=== PATIENT | female | born 1980 | race American Indian/Alaskan Native ===

== ENCOUNTER 2019-03-03 08:40 | Emergency (ER) | payer BC, MEDICAID ==
[2019-03-03 09:06] VITALS: BP 144/96
--- NOTE | 2019-03-03 10:46 | Emergency Department Report ---
ED Lower Extremity HPI - General Chief Complaint: Extremity Injury, Lower Stated Complaint: LEFT HIP PAIN Time Seen by Provider: 03/03/19 10:36 Source: patient Mode of arrival: Ambulatory Limitations: No Limitations - History of Present Illness Initial Comments: Mrs. Harris is a 38-year-old female who presents with the pain for the last week. Pain is worse with position change. Ibuprofen improves the pain. Pain is moderately severe in severity. She had a fall 2 weeks ago. She did strain her right hamstring. She did not have immediate hip pain. Denies direct trauma. Pain is central to the left groin. MD Complaint: hip injury -: Gradual, week(s) (1) Injury: Hip: Left Type of Injury: other (fall strain) Severity: moderate Improves With: NSAID Worsens With: weight bearing, movement Context: fall - Related Data Previous Rx's Medication Instructions Recorded Last Taken Type Ibuprofen [Motrin 800 MG tab] 800 mg PO Q8H PRN #90 tablet 07/21/14 Unknown Rx oxyCODONE /ACETAMINOPHEN [Percocet 1 tab PO Q6HR PRN #30 tablet 07/21/14 Unknown Rx 5/325 mg] Amoxicillin/K Clav Tab [Augmentin 1 tab PO Q12HR #20 tab 05/04/15 Unknown Rx 875 mg] Gentamicin 0.3% Ophth Soln 2 drops OS QID #5 ml 05/04/15 Unknown Rx predniSONE [Deltasone] 20 mg PO TID #15 tab 05/04/15 Unknown Rx Allergies Allergy/AdvReac Type Severity Reaction Status Date / Time No Known Allergies Allergy Verified 07/21/14 07:50 ED Review of Systems ROS: Stated complaint: LEFT HIP PAIN Other details as noted in HPI Constitutional: denies: fever, malaise Musculoskeletal: arthralgia Skin: denies: rash, lesions ED Past Medical Hx - Past Medical History Previous Medical History?: Yes Hx Hypertension: No Hx Congestive Heart Failure: No Hx Diabetes: No Hx Deep Vein Thrombosis: No Hx Renal Disease: No Hx Sickle Cell Disease: No Hx Seizures: No Hx Asthma: No Hx COPD: No Hx HIV: No Additional medical history: Obesity - Surgical History Additional Surgical History: X2 - Social History Smoking Status: Never Smoker Substance Use Type: Alcohol - Medications Home Medications: Home Medications Medication Instructions Recorded Confirmed Last Taken Type Ibuprofen [Motrin 800 MG tab] 800 mg PO Q8H PRN #90 tablet 07/21/14 Unknown Rx oxyCODONE /ACETAMINOPHEN [Percocet 1 tab PO Q6HR PRN #30 tablet 07/21/14 Unknown Rx 5/325 mg] Amoxicillin/K Clav Tab [Augmentin 1 tab PO Q12HR #20 tab 05/04/15 Unknown Rx 875 mg] Gentamicin 0.3% Ophth Soln 2 drops OS QID #5 ml 05/04/15 Unknown Rx predniSONE [Deltasone] 20 mg PO TID #15 tab 05/04/15 Unknown Rx ED Physical Exam - General Limitations: No Limitations General appearance: alert, in no apparent distress - Head Head exam: Present: atraumatic, normocephalic - Respiratory Respiratory exam: Absent: respiratory distress - Extremities Exam Extremities exam: Present: normal inspection, full ROM, other (steady normal gait able to change position without difficulty). Absent: tenderness - Expanded Lower Extremity Exam Left Hip exam: Present: normal inspection, full ROM. Absent: tenderness, swelling, abrasion, deformity Upper Leg exam: Present: normal inspection, full ROM. Absent: tenderness, swe lling Knee exam: Present: normal inspection, full ROM Lower Leg exam: Present: normal inspection, full ROM Ankle exam: Present: normal inspection, full ROM Foot/Toe exam: Present: normal inspection, full ROM ED Course Vital Signs 03/03/19 09:05 Temperature 98.1 F Pulse Rate 79 Respiratory 16 Rate Blood Pressure 144/96 O2 Sat by Pulse 97 Oximetry ED Lower Extremity MDM - Radiology Data Radiology results: report reviewed Left hip radiograph: No acute process, no DJD according to radiology report - Medical Decision Making Left hip strain due to fall: Recommended continued use of ibuprofen. Referred to orthopedic surgeon. Normal radiographs according to radiology report Critical care attestation.: If time is entered above; I have spent that time in minutes in the direct care of this critically ill patient, excluding procedure time. ED Disposition Clinical Impression: Strain of left hip Disposition: - TO HOME OR SELFCARE Is pt being admited?: No Does the pt Need Aspirin: No Condition: Stable Instructions: Muscle Strain (ED) Referrals: FELICITAS BYRNES MD [Staff Physician] - 3-5 Days Forms: Work/School Release Form(ED)
--- NOTE | 2019-03-03 11:33 | XRay Report ---
Left hip, 2 views INDICATION: left hip pain. COMPARISON: None. IMPRESSION: No acute osseous or soft tissue abnormality. No significant DJD. Signer Name: Geraldo Maurer Jr, MD Signed: 03/03/2019 11:29 AM Workstation Name: [id number]
== END 2019-03-03 11:45 | disposition home or self-care (01) ==
LOC: ED 08:40
DX: S76.012A Strain of muscle, fascia and tendon of left hip, initial encounter (principal); E66.9 Obesity, unspecified; Z79.899 Other long term (current) drug therapy; W19.XXXA Unspecified fall, initial encounter; Y93.89 Activity, other specified; Y92.89 Other specified places as the place of occurrence of the external cause; Y99.8 Other external cause status

== ENCOUNTER 2020-01-12 11:56 | Inpatient (IN) | payer OTHER, SELFPAY ==
[2020-01-12] MEDS ORDERED: SODIUM CHLORIDE 0.9% 1000 ML IV SOLN IV ONE (13:14)
--- NOTE | 2020-01-12 13:18 | Emergency Department Report ---
ED General Adult HPI - General Chief complaint: Dyspnea/Respdistress Stated complaint: SOB Time Seen by Provider: 01/12/20 12:50 Source: patient Mode of arrival: Ambulatory Limitations: No Limitations - History of Present Illness Initial comments: Patient is 39 years old female with no significant past medical history. Patient presented to the ER complaining of shortness of breath and fever. Patient stated the symptoms started 3 days ago with a temperature of 103 and headache. Patient stated that she has been taking ibuprofen and Tylenol. She stated that headache is gone but now she started having more shortness of breath. Patient found to have a oxygen saturation of 73% on room air in triage improved to 95% on 4 L of oxygen. Patient also complaining of nausea and diarrhea. Severity scale (0 -10): 5 - Related Data Previous Rx's Medication Instructions Recorded Last Taken Type Ibuprofen [Motrin 800 MG tab] 800 mg PO Q8H PRN #90 tablet 07/21/14 Unknown Rx oxyCODONE /ACETAMINOPHEN [Percocet 1 tab PO Q6HR PRN #30 tablet 07/21/14 Unknown Rx 5/325 mg] Amoxicillin/K Clav Tab [Augmentin 1 tab PO Q12HR #20 tab 05/04/15 Unknown Rx 875 mg] Gentamicin 0.3% Ophth Soln 2 drops OS QID #5 ml 05/04/15 Unknown Rx predniSONE [Deltasone] 20 mg PO TID #15 tab 05/04/15 Unknown Rx Allergies Allergy/AdvReac Type Severity Reaction Status Date / Time No Known Allergies Allergy Verified 07/21/14 07:50 ED Review of Systems ROS: Stated complaint: SOB Other details as noted in HPI Comment: All other systems reviewed and negative Constitutional: chills, fever Respiratory: cough, shortness of breath Cardiovascular: denies: chest pain, palpitations Gastrointestinal: nausea. denies: abdominal pain, vomiting ED Past Medical Hx - Past Medical History Previous Medical History?: No Hx Hypertension: No Hx Congestive Heart Failure: No Hx Diabetes: No Hx Deep Vein Thrombosis: No Hx Renal Disease: No Hx Sickle Cell Disease: No Hx Seizures: No Hx Asthma: No Hx COPD: No Hx HIV: No Additional medical history: Obesity - Surgical History Past Surgical History?: Yes Additional Surgical History: X2 - Social History Smoking Status: Never Smoker Substance Use Type: None - Medications Home Medications: Home Medications Medication Instructions Recorded Confirmed Last Taken Type Ibuprofen [Motrin 800 MG tab] 800 mg PO Q8H PRN #90 tablet 07/21/14 Unknown Rx oxyCODONE /ACETAMINOPHEN [Percocet 1 tab PO Q6HR PRN #30 tablet 07/21/14 Unknown Rx 5/325 mg] Amoxicillin/K Clav Tab [Augmentin 1 tab PO Q12HR #20 tab 05/04/15 Unknown Rx 875 mg] Gentamicin 0.3% Ophth Soln 2 drops OS QID #5 ml 05/04/15 Unknown Rx predniSONE [Deltasone] 20 mg PO TID #15 tab 05/04/15 Unknown Rx ED Physical Exam - General Limitations: No Limitations General appearance: alert, in no apparent distress - Head Head exam: Present: atraumatic, normocephalic, normal inspection - Eye Eye exam: Present: normal appearance - ENT ENT exam: Present: mucous membranes dry - Neck Neck exam: Present: normal inspection, full ROM. Absent: tenderness, meningismus - Respiratory Respiratory exam: Present: normal lung sounds bilaterally - Cardiovascular Cardiovascular Exam: Present: regular rate, normal rhythm, normal heart sounds - GI/Abdominal GI/Abdominal exam: Present: soft, normal bowel sounds. Absent: distended, tenderness, guarding, rebound, rigid, organomegaly, mass, bruit, pulsatile mass, hernia - Extremities Exam Extremities exam: Present: normal inspection, full ROM, normal capillary refill. Absent: tenderness, pedal edema, calf tenderness - Back Exam Back exam: Present: normal inspection, full ROM. Absent: CVA tenderness (R), CVA tenderness (L) - Neurological Exam Neurological exam: Present: alert, oriented X3, CN II-XII intact, normal gait, reflexes normal - Psychiatric Psychiatric exam: Present: normal mood - Skin Skin exam: Present: warm, intact, normal color ED Course Vital Signs 01/12/20 01/12/20 01/12/20 12:42 12:45 12:47 Temperature 99.7 F H Pulse Rate 93 H 96 H Respiratory 18 Rate Blood Pressure 98/56 98/56 Blood Pressure 98/56 [Right] O2 Sat by Pulse 95 94 91 Oximetry 01/12/20 01/12/20 01/12/20 13:00 13:15 13:30 Temperature Pulse Rate 85 85 83 Respiratory Rate Blood Pressure 98/56 98/57 98/57 Blood Pressure [Right] O2 Sat by Pulse 96 94 92 Oximetry 01/12/20 01/12/20 01/12/20 13:58 14:00 14:16 Temperature Pulse Rate 101 H 93 H Respiratory 9 L 27 H Rate Blood Pressure 98/57 98/57 98/57 Blood Pressure [Right] O2 Sat by Pulse 97 Oximetry 01/12/20 01/12/20 01/12/20 14:30 14:46 15:00 Temperature Pulse Rate 82 83 Respiratory 51 H 28 H Rate Blood Pressure 98/57 98/57 98/57 Blood Pressure [Right] O2 Sat by Pulse 97 98 95 Oximetry 01/12/20 01/12/20 01/12/20 15:16 15:30 15:46 Temperature Pulse Rate 80 79 79 Respiratory 21 25 H 16 Rate Blood Pressure 98/57 98/57 105/57 Blood Pressure [Right] O2 Sat by Pulse 96 97 95 Oximetry 01/12/20 01/12/20 01/12/20 16:00 16:16 16:30 Temperature Pulse Rate 82 81 80 Respiratory 38 H 24 20 Rate Blood Pressure 105/57 105/57 105/57 Blood Pressure [Right] O2 Sat by Pulse 97 95 95 Oximetry 01/12/20 01/12/20 01/12/20 16:46 17:00 17:16 Temperature Pulse Rate 82 81 83 Respiratory 23 18 17 Rate Blood Pressure 117/77 117/77 117/77 Blood Pressure [Right] O2 Sat by Pulse 95 92 85 Oximetry 01/12/20 01/12/20 01/12/20 17:30 17:46 18:00 Temperature Pulse Rate 83 79 98 H Respiratory 34 H 24 19 Rate Blood Pressure 117/77 114/65 114/65 Blood Pressure [Right] O2 Sat by Pulse 92 93 93 Oximetry 01/12/20 01/12/20 01/12/20 18:10 18:20 18:30 Temperature Pulse Rate 85 86 87 Respiratory 26 H 26 H 33 H Rate Blood Pressure 114/65 114/65 114/65 Blood Pressure [Right] O2 Sat by Pulse 91 91 87 Oximetry 01/12/20 01/12/20 01/12/20 18:40 18:50 19:00 Temperature Pulse Rate 86 Respiratory 53 H Rate Blood Pressure 114/65 116/74 116/74 Blood Pressure [Right] O2 Sat by Pulse 91 88 92 Oximetry 01/12/20 01/12/20 01/12/20 19:10 19:20 19:30 Temperature Pulse Rate Respiratory Rate Blood Pressure 116/74 116/74 116/74 Blood Pressure [Right] O2 Sat by Pulse 93 92 92 Oximetry 01/12/20 01/12/20 01/12/20 19:40 19:50 20:00 Temperature Pulse Rate Respiratory Rate Blood Pressure 116/74 116/66 116/66 Blood Pressure [Right] O2 Sat by Pulse 94 93 93 Oximetry 01/12/20 20:23 Temperature 99.9 F H Pulse Rate 90 Respiratory 20 Rate Blood Pressure 116/70 Blood Pressure [Right] O2 Sat by Pulse 88 Oximetry ED Medical Decision Making - Lab Data Result diagrams: 01/13/20 05:03 01/13/20 05:03 - Radiology Data Radiology results: report reviewed - Medical Decision Making Patient is 39 years old female with no significant past medical history. Patient presented to the ER complaining of shortness of breath and fever. Patient stated the symptoms started 3 days ago with a temperature of 103 and headache. Patient stated that she has been taking ibuprofen and Tylenol. She stated that headache is gone but now she started having more shortness of breath. Patient found to have a oxygen saturation of 73% on room air in triage improved to 95% on 4 L of oxygen. Patient also complaining of nausea and diarrhea. Patient stated that her shortness of breath is much better when she started on oxygen. Chest x-ray showed pneumonia. COVID-19 lab order. Patient treated with Rocephin and Zithromax. Patient received normal saline 30 mL/kg. I discussed the patient with Dr. Haley, he agreed to admit the patient to medical service for further management. Critical Care Time: Yes Critical care time in (mins) excluding proc time.: 30 Critical care attestation.: If time is entered above; I have spent that time in minutes in the direct care of this critically ill patient, excluding procedure time. ED Disposition Clinical Impression: Sepsis, Suspected COVID-19 virus infection Acute respiratory failure Qualifiers: Respiratory failure complication: hypoxia Qualified Code(s): J96.01 - Acute respiratory failure with hypoxia Disposition: OP ADMIT IP TO THIS HOSP Is pt being admited?: Yes Condition: Stable
--- NOTE | 2020-01-12 13:44 | XRay Report ---
CHEST 1 VIEW 1314 INDICATION / CLINICAL INFORMATION: Fever and shortness of breath. COMPARISON: None available. FINDINGS: SUPPORT DEVICES: None HEART / MEDIASTINUM: Upper limits of normal on this projection LUNGS / PLEURA: Mildly congested appearance is seen for the semiupright view. No areas of consolidati on are seen. Slight patchy density is seen in the right upper lobe which could be artifactual but I w ould have difficulty excluding mild patchy interstitial infiltrate. No pneumothorax. ADDITIONAL FINDINGS: No significant additional findings. IMPRESSION: Mild congestion. Question of mild patchy infiltrate in the right upper lobe. Recommend cl inical correlation. Signer Name: John Montero MD Signed: 01/12/2020 1:40 PM Workstation Name: [id number]
[2020-01-12 14:22] LABS: Basophils % (Auto) 0.6 % (0.0-1.8); Hematocrit 36.4 % (30.3-42.9); Hemoglobin 12.2 gm/dl (10.1-14.3); Lymphocytes # (Auto) 1.3 K/mm3 (1.2-5.4); Lymphocytes % (Auto) 27.1 % (13.4-35.0); Mean Corpuscular HGB Conc 33 % (30-34); Mean Corpuscular Volume 79 fl (79-97); Monocytes # (Auto) 0.4 K/mm3 (0.0-0.8); Monocytes % (Auto) 8.6 % (0.0-7.3); Platelet Count 172 K/mm3 (140-440); Red Blood Count 4.63 M/mm3 (3.65-5.03); Red Cell Distribution Width 17.2 % (13.2-15.2)
[2020-01-12] MEDS ORDERED: AZITHROMYCIN 500 MG in SODIUM CHLORIDE 0.9% 250ML 250 ML IV ONE (14:28)
[2020-01-12] MEDS ORDERED: cefTRIAXone/NS 1 GM/50 ML 1 GM/50 ML BAG IV ONE (14:28)
[2020-01-12 14:31] LABS: Bacteria,Urine 1+ /HPF (Negative); Bilirubin,Urine NEG (Negative); Blood,Urine NEG (Negative); Color,Urine Amber (Yellow); Mucus,Urine 1+ /HPF
--- NOTE | 2020-01-12 14:45 | History and Physical Report ---
History of Present Illness Chief complaint: Is hard for me to breathe, and I am coughing History of present illness: 39 YO Female with Obesity Hypoventilation Syndrome, Super Morbid Obesity presents to ED for evaluation. Patient states that she had experienced fever to 104 F, dry cough, and shortness of breath over the past 3 days with progressively worsening symptoms over the same time frame. Patient also reports malaise, fatigue, and generalized weakness. Patient transported to [facility] via private vehicle for further care and evaluation of the aforementioned symptoms. Patient seen and evaluated in the emergency department. Lab and imaging studies reviewed. Patient found to have a pulse oximetry of 73% on room air which is consistent with acute hypoxemic respiratory failure. Patient immediately placed on supplemental oxygen for acute hypoxemic respiratory failure. Chest x-ray revealed RUL pneumonia. Patient admitted to medical floor for further care. Patient initiated on pneumonia protocol as well as coronavirus 19 protocol. Infectious disease service consulted in ED. Patient denies chills, chest pain, palpitation, skin rash, nausea, vomiting, abdominal pain, diarrhea, known ill contacts, or known exposure to COVID-19. No prior admission for review. All medication listed at time of admission has been reconciled. Past History Past Medical History: other (See HPI) Past Surgical History: Social history: . denies: smoking, alcohol abuse, prescription drug abuse Family history: hypertension Medications and Allergies Allergies Allergy/AdvReac Type Severity Reaction Status Date / Time No Known Allergies Allergy Verified 07/21/14 07:50 Home Medications Medication Instructions Recorded Confirmed Last Taken Type Ibuprofen [Motrin 800 MG tab] 800 mg PO Q8H PRN #90 tablet 07/21/14 Unknown Rx oxyCODONE /ACETAMINOPHEN [Percocet 1 tab PO Q6HR PRN #30 tablet 07/21/14 Unknown Rx 5/325 mg] Amoxicillin/K Clav Tab [Augmentin 1 tab PO Q12HR #20 tab 05/04/15 Unknown Rx 875 mg] Gentamicin 0.3% Ophth Soln 2 drops OS QID #5 ml 05/04/15 Unknown Rx predniSONE [Deltasone] 20 mg PO TID #15 tab 05/04/15 Unknown Rx Active Meds: Active Medications Azithromycin 500 mg/ Sodium (Chloride) 250 mls @ 250 mls/hr IV ONCE ONE; P rotocol Stop: 01/12/20 15:27 Ceftriaxone Sodium (Rocephin/Ns 1 Gm/50 Ml) 1 gm in 50 mls @ 100 mls/hr IV ONCE ONE; Protocol Stop: 01/12/20 14:57 Review of Systems Constitutional: fever, fatigue, weakness, malaise, lethargy Ears, nose, mouth and throat: ear pain, ear discharge, tinnitis, decreased hearing, nose pain Cardiovascular: shortness of breath, no chest pain, no orthopnea, no palpitations Respiratory: cough, cough with sputum, shortness of breath, no wheezing, no pleurisy Gastrointestinal: no abdominal pain, no nausea, no vomiting, no diarrhea, no constipation Genitourinary Female: no pelvic pain, no flank pain, no menorrhagia Rectal: no pain, no incontinence, no bleeding Musculoskeletal: no neck stiffness, no neck pain, no shooting arm pain, no arm numbness/tingling Integumentary: no rash, no pruritis, no redness, no sores, no wounds Neurological: no transient paralysis, no paralysis, no weakness, no parathesias, no numbness, no tingling, no seizures Psychiatric: no anxiety, no memory loss, no change in sleep habits, no sleep disturbances, no insomnia, no hypersomnia, no change in appetite Endocrine: no cold intolerance, no heat intolerance, no polyphagia, no excessive thirst, no polydipsia, no polyuria Hematologic/Lymphatic: no easy bruising, no easy bleeding, no lymphadenopathy, no lymphedema Allergic/Immunologic: no urticaria, no wheezing, no persistent infections, no anaphylaxis Exam - Constitutional Vitals: Temp Pulse Resp BP Pulse Ox 99.7 F H 96 H 18 98/56 91 01/12/20 12:47 01/12/20 12:47 01/12/20 12:47 01/12/20 12:47 01/12/20 12:47 General appearance: Present: mild distress, obese - EENT Eyes: Present: PERRL ENT: hearing intact, clear oral mucosa - Neck Neck: Present: supple, normal ROM - Respiratory Respiratory effort: labored, accessory muscle use, stridor Respiratory: bilateral: diminished, rhonchi - Cardiovascular Heart Sounds: Present: S1 & S2. Absent: rub, click - Extremities Extremities: pulses symmetrical, No edema Peripheral Pulses: within normal limits - Abdominal General gastrointestinal: Present: soft, non-tender, non-distended, normal bowel sounds Female genitourinary: Present: normal - Integumentary Integumentary: Present: clear, warm, dry - Musculoskeletal Musculoskeletal: generalized weakness - Psychiatric Psychiatric: appropriate mood/affect, intact judgment & insight - Neurologic Neurologic: CNII-XII intact, moves all extremities Results - Labs CBC & Chem 7: 01/12/20 14:00 01/12/20 14:00 Labs: Abnormal lab results 01/12/20 01/12/20 Range/Units 14:00 14:00 MCH 26 L (28-32) pg RDW 17.2 H (13.2-15.2) % [place] % (Auto) 8.6 H (0.0-7.3) % D-Dimer 777.87 H (0-234) ng/mlDDU Assessment and Plan - Patient Problems (1) Acute respiratory failure Current Visit: Yes Status: Acute Qualifiers: Respiratory failure complication: hypoxia Qualified Code(s): J96.01 - Acute respiratory failure with hypoxia Plan to address problem: Chest x-ray, supplemental oxygen, nebulizer therapy, noninvasive positive pressure ventilation as clinically indicated, incentive spirometry, pulmonary toilet, ambulate in hallway 3 times daily as needed, treat pneumonia. (2) Pneumonia Current Visit: Yes Status: Acute Qualifiers: Laterality: right Lung location: upper lobe of lung Plan to address problem: Pneumonia protocol: Chest x-ray, CBC, CMP, IV antibiotic therapy, blood culture, pulse oximetry, nebulizer therapy, pulmonary toilet. (3) Suspected COVID-19 virus infection Current Visit: Yes Status: Acute Plan to address problem: Coronavirus protocol: Infectious disease service consulted in ED, COVID-19 PCR sent in emergency department, prone ventilation while in bed, supportive care. (4) Obesity hypoventilation syndrome Current Visit: Yes Status: Acute Plan to address problem: Supplemental oxygen, nebulizer therapy, incentive spirometry, early ambulation, out of bed to chair 3 times daily and PRN. Balanced diet, increase physical activity at discharge. Outpatient bariatric surgery consult. Outpatient pulmonology evaluation for sleep study. (5) DVT prophylaxis Current Visit: Yes Status: Acute Plan to address problem: SCD to bilateral lower extremities while in bed, prophylactic heparin.
[2020-01-12 14:49] LABS: BUN/Creatinine Ratio 13; Blood Urea Nitrogen 12 mg/dL (7-17)
[2020-01-12 14:50] LABS: Alanine Aminotransferase 31 units/L (7-56); Albumin 3.7 g/dL (3.9-5); Bilirubin,Direct 0.2 mg/dL (0-0.2); Calcium 8.5 mg/dL (8.4-10.2)
[2020-01-12] MEDS ORDERED: oxyCODONE /ACETAMINOPHEN 5-325MG TAB PO PRN (14:59)
[2020-01-12] MEDS ORDERED: ACETAMINOPHEN 325 MG TAB PO PRN (15:00)
[2020-01-12] MEDS ORDERED: ONDANSETRON 4 MG/2 ML INJ IV PRN (15:00)
[2020-01-12] MEDS: GENTAMICIN 0.3% OPHTH SOLN 5 ML OS SCH (18:00)
[2020-01-13] MEDS: HEPARIN 5,000 UNIT/1 ML VIAL SUB-Q SCH ×3 (00:06→22:51)
[2020-01-13] MEDS: GENTAMICIN 0.3% OPHTH SOLN 5 ML OS SCH ×5 (00:07→22:54)
[2020-01-13 05:16] LABS: Basophils % (Auto) 0.3 % (0.0-1.8); Eosinophils % (Auto) 0.1 % (0.0-4.3); Hematocrit 36.6 % (30.3-42.9); Hemoglobin 11.6 gm/dl (10.1-14.3); Lymphocytes # (Auto) 1.2 K/mm3 (1.2-5.4); Lymphocytes % (Auto) 22.3 % (13.4-35.0); Mean Corpuscular HGB Conc 32 % (30-34); Mean Corpuscular Volume 79 fl (79-97); Monocytes # (Auto) 0.4 K/mm3 (0.0-0.8); Monocytes % (Auto) 8.1 % (0.0-7.3); Platelet Count 174 K/mm3 (140-440); Red Blood Count 4.63 M/mm3 (3.65-5.03); Red Cell Distribution Width 16.9 % (13.2-15.2)
[2020-01-13 06:06] LABS: BUN/Creatinine Ratio 11; Blood Urea Nitrogen 10 mg/dL (7-17); Calcium 7.9 mg/dL (8.4-10.2); Hemolysis Index 0
[2020-01-13] MEDS: cefTRIAXone/NS 2 GM/100 ML 2 GM/100 ML BAG IV SCH (11:24)
[2020-01-13] MEDS: AZITHROMYCIN 250 MG TAB PO SCH (11:25)
--- NOTE | 2020-01-13 21:30 | Progress Note ---
Assessment and Plan / Acute hypoxic respiratory failure Patient on high flow FiO2 Due to COVID-19 pneumonia Continue nebs, Solu-Medrol and wean off O2 as tolerated Consulted pulmonary / Severe sepsis Due to COVID-19 Continue IV steroid and follow inflammatory markers / COVID-19 virus PNA Coronavirus protocol: Infectious disease service consulted in ED, prone ventilation while in bed, follow inflammatory markers Continue IV Solu-Medrol for now, wait for ID recommendation supportive care. / Obesity hypoventilation syndrome Supplemental oxygen, nebulizer therapy, incentive spirometry, CPAP at bedtime Outpatient pulmonology evaluation for sleep study. /Morbid obesity, dietary and exercise remote recommendation when clinically stable / DVT prophylaxis SCD to bilateral lower extremities while in bed, prophylactic heparin. 01/12: Positive for COVID 19, patient on high flow 75% Fio2. follow ID recommendation. cont on iv steroid, follow inflammatory markers Subjective Date of service: 01/13/20 Interval history: Patient seen and examined. Medical records and medication list reviewed. No acute event overnight noted by the RN. Patient complains of difficulty breathing even on resting. Patient is tolerating diet. Patient high flow O2 Discussed plan of care at bedside with patient. Objective - Exam Narrative Exam: GENERAL: well-developed and morbidly obese -[place] female lying on bed appeared to be in no discomfort. HEENT: Normocephalic. Atraumatic. No conjunctival congestion or icterus. Patient has moist mucous membranes. NECK: Supple. Trachea midline. CHEST/LUNGS: Diminished breath sound auscultated bilaterally, breathing nonlabored. HEART/CARDIOVASCULAR: Regular in rate and rhythm. S1 and S2 positive. ABDOMEN: Abdomen is soft, nontender. Patient has normal bowel sounds. SKIN: There is no rash. Warm and dry. NEURO: No focal motor deficit. Follows command. MUSCULOSKELETAL: No joint effusion or tenderness. EXTRIMITY: No edema, no cyanosis or clubbing. PSYCH: Cooperative. - Constitutional Vitals: Vital Signs - 12hr 01/13/20 01/13/20 01/13/20 10:00 11:52 13:45 Temperature 100.5 F H Pulse Rate 86 Respiratory 20 Rate Blood Pressure 101/60 O2 Sat by Pulse 93 90 95 Oximetry 01/13/20 01/13/20 01/13/20 16:32 17:53 20:55 Temperature 103.0 F H Pulse Rate 86 Respiratory 20 Rate Blood Pressure 93/56 O2 Sat by Pulse 86 92 93 Oximetry - Labs CBC & Chem 7: 01/19/20 04:56 01/19/20 04:56 Labs: Abnormal lab results 01/12/20 01/13/20 01/13/20 Range/Units Unknown 05:03 05:03 MCH 25 L (28-32) pg RDW 16.9 H (13.2-15.2) % [place] % (Auto) 8.1 H (0.0-7.3) % Chloride 97.7 L (98-107) mmol/L Glucose 112 H (65-100) mg/dL Calcium 7.9 L (8.4-10.2) mg/dL Coronavirus (PCR) Positive A (Negative)
[2020-01-13] MEDS ORDERED: methylPREDNISolone Sod Succinate 125 MG/2 ML INJ IV SCH (22:00)
[2020-01-13] MEDS: methylPREDNISolone Sod Succinate 40 MG/1 ML INJ IV SCH (22:51)
[2020-01-14 01:01] LABS: C-Reactive Protein 13.8 mg/dL (0.00-1.30)
[2020-01-14] MEDS: methylPREDNISolone Sod Succinate 125 MG/2 ML INJ IV SCH ×2 (06:42→13:20)
[2020-01-14] MEDS: methylPREDNISolone Sod Succinate 40 MG/1 ML INJ IV SCH (07:23)
[2020-01-14] MEDS: HEPARIN 5,000 UNIT/1 ML VIAL SUB-Q SCH (09:32)
[2020-01-14] MEDS: AZITHROMYCIN 250 MG TAB PO SCH (09:33)
[2020-01-14] MEDS: cefTRIAXone/NS 2 GM/100 ML 2 GM/100 ML BAG IV SCH (09:33)
[2020-01-14] MEDS: REMDESIVIR 100 MG in SODIUM CHLORIDE 0.9% 250ML 250 ML IV SCH (11:21)
[2020-01-14] MEDS: GENTAMICIN 0.3% OPHTH SOLN 5 ML OS SCH ×4 (11:26→22:25)
[2020-01-14] MEDS ORDERED: SODIUM CHLORIDE 0.9% 50 ML IV SCH (13:00)
[2020-01-14] MEDS ORDERED: REMDESIVIR 100 MG in SODIUM CHLORIDE 0.9% 250ML 250 ML IV ONE (13:00)
[2020-01-14] MEDS ORDERED: methylPREDNISolone Sod Succinate 125 MG/2 ML INJ IV SCH (14:00)
--- NOTE | 2020-01-14 16:05 | Consultation ---
History of Present Illness - Reason for Consult Consult date: 01/14/20 COVID Requesting physician: KENDELL PIERCE - History of Present Illness 39 years old female with history of super obesity, obstructive sleep apnea, admitted on 01/13/2020 due to 10-day history of runny nose, body aches, generalized malaise, dry cough, progressive shortness of breath. Review of Systems: positive in bold print General: fever, chills, malaise Cutaneous: rash, pruritus Head: headaches or injury Eyes: changes in vision, eye pain, double vision Ears: ear pain, ear discharge, ringing or hearing loss Nose: nose bleeding, stuffiness Mouth & throat: bleeding gums, horseness, no dental problems, or swollen glands Neck: no pain, node enlargement/lumps, tyroid enlargement or tenderness Respiratory: SOB, cough, PHILIP, wheezing, sputum, hemoptysis, pleuritic chest pain Cardiovascular: chest pain, leg edema, cyanosis, PHILIP, orthopnea Musculoskeletal: edema, deformities, pain Gastrointestinal: nausea, vomiting, hematemesis, diarrhea, constipation, melena, bright red blood in stools, fecal incontinence, jaundice Genitourinary/Reproductive: frequent urination, dysuria, hematuria, incontinence Neurogical: seizures, headaches, weakness, paresthesias, loss of speech or vision; memory loss, vertigo, tremors, numbness Psychiatric: stable mood; excessive anxiety, sadness or moodiness Past History Past Medical History: other (See HPI) Past Surgical History: Social history: . denies: smoking, alcohol abuse, prescription drug abuse Family history: hypertension Medications and Allergies Allergies Allergy/AdvReac Type Severity Reaction Status Date / Time No Known Allergies Allergy Verified 07/21/14 07:50 Home Medications Medication Instructions Recorded Confirmed Last Taken Type Ibuprofen [Motrin 800 MG tab] 800 mg PO Q8H PRN #90 tablet 07/21/14 01/14/20 06:52 Rx oxyCODONE /ACETAMINOPHEN [Percocet 1 tab PO Q6HR PRN #30 tablet 07/21/14 01/14/20 12/20/19 Rx 5/325 mg] Amoxicillin/K Clav Tab [Augmentin 1 tab PO Q12HR #20 tab 05/04/15 01/14/20 01/14/20 06:53 Rx 875 mg] Gentamicin 0.3% Ophth Soln 2 drops OS QID #5 ml 05/04/15 01/14/20 12/20/19 Rx predniSONE [Deltasone] 20 mg PO TID #15 tab 05/04/15 01/14/20 01/14/20 06:51 Rx Active Meds: Active Medications Acetaminophen (Tylenol) 650 mg PO Q4H PRN PRN Reason: Pain MILD(1-3)/Fever >100.5/CASTANO Last Admin: 01/13/20 00:22 Dose: 650 mg Documented by: Azithromycin (Zithromax) 500 mg PO QDAY [facility] Last Admin: 01/14/20 09:33 Dose: 500 mg Documented by: Gentamicin Sulfate (Gentamicin 0.3% Ophth Soln) 2 drops OS QID [facility] Last Admin: 01/14/20 13:28 Dose: 2 drops Documented by: Heparin Sodium (Porcine) (Heparin) 5,000 unit SUB-Q Q12HR [facility] Last Admin: 01/14/20 09:32 Dose: 5,000 unit Documented by: Ceftriaxone Sodium (Rocephin/Ns 2 Gm/100 Ml) 2 gm in 100 mls @ 200 mls/hr IV Q24HR [facility] Last Admin: 01/14/20 09:33 Dose: 200 mls/hr Documented by: REMDESIVIR 100 mg/ Sodium (Chloride) 250 mls @ 500 mls/hr IV Q24HR [facility] Stop: 01/18/20 10:29 Last Admin: 01/14/20 11:21 Dose: 500 mls/hr Documented by: Sodium Chloride (Nacl 0.9%) 50 mls @ 200 mls/hr IV Q24H [facility] Stop: 01/18/20 11:14 Methylprednisolone Sodium Succinate (Solu-Medrol) 40 mg IV Q8HR [facility] Last Admin: 01/14/20 13:20 Dose: 40 mg Documented by: Ondansetron HCl (Zofran) 4 mg IV Q8H PRN PRN Reason: Nausea And Vomiting Oxycodone/Acetaminophen (Percocet 5/325) 1 tab PO Q6HR PRN PRN Reason: SEV PAIN Sodium Chloride (Sodium Chloride Flush Syringe 10 Ml) 10 ml IV BID [facility] Last Admin: 01/14/20 09:33 Dose: 10 ml Documented by: Sodium Chloride (Sodium Chloride Flush Syringe 10 Ml) 10 ml IV PRN PRN PRN Reason: LINE FLUSH Physical Examination - Physical Exam Narrative exam: Limited given PPE conservation - Constitutional Vitals: Vital Signs Temp Pulse Resp BP Pulse Ox 98.3 F 97 H 16 107/66 59 L 01/14/20 12:54 01/14/20 12:54 01/14/20 12:54 01/14/20 12:54 01/14/20 12:54 Temperature -Last 24 Hours Temperature 98.3 F Temperature 98.2 F Temperature 98.6 F Temperature 103.0 F Results - Labs CBC & Chem 7: 01/13/20 05:03 01/13/20 05:03 Labs: Abnormal lab results 01/13/20 01/13/20 Range/Units 23:51 23:51 D-Dimer 1080.13 H (0-234) ng/mlDDU Lactate Dehydrogenase 522 H (91-180) units/L C-Reactive Protein 13.80 H (0.00-1.30) mg/dL Assessment and Plan Cultures: Blood cultures so far negative Assessment: 39 years old female with history of super obesity, obstructive sleep apnea, admitted on 01/13/2020 due to 10-day history of runny nose, body aches, generalized malaise, dry cough, progressive shortness of breath: #Severe sepsis: Present on admission with tachycardia, hypotension, hypoxia; secondary to severe COVID. #Severe cough with pneumonia: Initial sats 73% on room air. Patient currently on high flow O2 100%, sat's down to 60s. Patient is also tachycardic and hypotensive. Inflammatory markers elevated d-dimer 777. LDH 584. CRP 44. However normal ferritin. Procalcitonin 0.05. #Acute hypoxemic respiratory failure: Now on high flow 100%, sats down to 60s. #Super obese: Adjusting medication to the weight Recommendations: Close monitoring, consider transferring to [facility] Get ABG Pulmonary consult, patient at risk of intubation and need for ECMO Continue Remdesivir 200 mg IV x1 followed by 100 g IV once a day, will likely extend to 10 days Continue Solu-Medrol 80 mg IV every 8 hour-higher dose Consider anticoagulation Daily biomarkers Consider CTA rule out PE and lower extremity ultrasound rule out DVT when stable Please consent for COVID-19 plasma and type and screen Guarded prognosis, high risk for deterioration, need for intubation, need for ECMO. discussed with Dr. Serrano under Will follow. Yue Garcia MD Infectious Diseases Orthopedic Podiatrist [facility] M [phone] O [phone]
--- NOTE | 2020-01-14 16:38 | Progress Note ---
Assessment and Plan / Acute hypoxic respiratory failure Patient on high flow 100% FiO2 Due to COVID-19 pneumonia Continue nebs, Solu-Medrol and wean off O2 as tolerated Consulted pulmonary / Severe sepsis Due to COVID-19 Continue IV remdesivir and follow inflammatory markers / COVID-19 virus PNA Coronavirus protocol: Infectious disease service consulted in ED, prone ventilation while in bed, follow inflammatory markers Continue IV Solu-Medrol and IV remdesivir supportive care. / Obesity hypoventilation syndrome Supplemental oxygen, nebulizer therapy, incentive spirometry, CPAP at bedtime Outpatient pulmonology evaluation for sleep study. /Morbid obesity, dietary and exercise remote recommendation when clinically stable / DVT prophylaxis SCD to bilateral lower extremities while in bed, prophylactic heparin. 01/12: Positive for COVID 19, patient on high flow 75% Fio2. follow ID recommendation. cont on iv steroid, follow inflammatory markers 01/13: Patient on 100% Fio2. cont steroid, remdisivir. consent for plasma therapy. transfer to [facility], consult pulmonary. Subjective Date of service: 01/14/20 Interval history: Patient seen and examined. Medical records and medication list reviewed. No acute event overnight noted by the RN. Patient complains of difficulty breathing even on resting. Patient is tolerating diet. Patient high flow O2 - 100%, Discussed plan of care at bedside with patient. transfer to ICU today for close monitoring Objective - Exam Narrative Exam: GENERAL: well-developed and morbidly obese -Spanish female lying on bed appeared to be in no discomfort. HEENT: Normocephalic. Atraumatic. No conjunctival congestion or icterus. Patient has moist mucous membranes. NECK: Supple. Trachea midline. CHEST/LUNGS: Diminished breath sound auscultated bilaterally, breathing nonlabored. HEART/CARDIOVASCULAR: Regular in rate and rhythm. S1 and S2 positive. ABDOMEN: Abdomen is soft, nontender. Patient has normal bowel sounds. SKIN: There is no rash. Warm and dry. NEURO: No focal motor deficit. Follows command. MUSCULOSKELETAL: No joint effusion or tenderness. EXTRIMITY: No edema, no cyanosis or clubbing. PSYCH: Cooperative. - Constitutional Vitals: Vital Signs - 12hr 01/14/20 01/14/20 01/14/20 04:43 09:00 12:54 Temperature 98.2 F 98.3 F Pulse Rate 79 97 H Respiratory 16 16 Rate Blood Pressure 107/67 107/66 O2 Sat by Pulse 83 L 87 59 L Oximetry - Labs CBC & Chem 7: 01/19/20 04:56 01/19/20 04:56 Labs: Abnormal lab results 01/13/20 01/13/20 Range/Units 23:51 23:51 D-Dimer 1080.13 H (0-234) ng/mlDDU Lactate Dehydrogenase 522 H (91-180) units/L C-Reactive Protein 13.80 H (0.00-1.30) mg/dL
--- NOTE | 2020-01-14 17:27 | Consultation ---
History of Present Illness Consult date: 01/14/20 Reason for consult: dyspnea, cough, hypoxemia, pneumonia, obstructive sleep apnea, other (Morbidly Obese.) History of present illness: 39 YO Female with Obesity Hypoventilation Syndrome, Super Morbid Obesity presents to ED for evaluation. Patient states that she had experienced fever to 104 F, dry cough, and shortness of breath over the past 3 days with progressively worsening symptoms over the same time frame. Patient also reports malaise, fatigue, and generalized weakness. Patient transported to [facility] via private vehicle for further care and evaluation of the aforementioned symptoms. Patient seen and evaluated in the emergency department. Lab and imaging studies reviewed. Patient found to have a pulse oximetry of 73% on room air which is consistent with acute hypoxemic respiratory failure. Patient immediately placed on supplemental oxygen for acute hypoxemic respiratory failure. Chest x-ray revealed RUL pneumonia. Patient admitted to medical floor for further care. Patient initiated on pneumonia protocol as well as coronavirus 19 protocol. Infectious disease service consulted in ED. Patient denies chills, chest pain, palpitation, skin rash, nausea, vomiting, abdominal pain, diarrhea. No prior admission for review. Patient works in [employer]. Patient exposed to family member that was positive to COVID 19 who also works at the same restaurant. Patients COVID 19 is positive. Patient has no history of smoking, alcohol or drug abuse. Denies allergic to medications. and has two children. Patient denies hypertension, diabetes and asthma. Patient placed on vapotherm 100% FIO2. O2 saturation saturation running 87%. Chest xray 01/12/20 reported Mild congestion. Question of mild patchy infiltrate in the right upper lobe. Patient febrile initially. She is afebrile now. No leukocytosis. Patient started on I/V solumedrol and REMDESVIR. Recommend ABGs on O2. Place her on BIPAP 20/10, Rate 20, FIO2 100%. Recommend to transfer to ICU. Recommend prone position. If patients condition deteriorate , recommend intubation and mechanical ventilation. Patients D dimer is high. Recommend venous doppler studies of legs and angio CT of chest. Until above results come back ,Give her prophylactic S/C Lovenox. Patients Procalcitonin level is normal Past History Past Medical History: other (See HPI) Past Surgical History: Social history: . denies: smoking, alcohol abuse, prescription drug abuse Family history: hypertension Medications and Allergies Allergies Allergy/AdvReac Type Severity Reaction Status Date / Time No Known Allergies Allergy Verified 07/21/14 07:50 Home Medications Medication Instructions Recorded Confirmed Last Taken Type Ibuprofen [Motrin 800 MG tab] 800 mg PO Q8H PRN #90 tablet 07/21/14 01/14/20 01/14/20 06:52 Rx oxyCODONE /ACETAMINOPHEN [Percocet 1 tab PO Q6HR PRN #30 tablet 07/21/14 01/14/20 12/20/19 Rx 5/325 mg] Amoxicillin/K Clav Tab [Augmentin 1 tab PO Q12HR #20 tab 05/04/15 01/14/20 01/14/20 06:53 Rx 875 mg] Gentamicin 0.3% Ophth Soln 2 drops OS QID #5 ml 05/04/15 01/14/20 12/20/19 Rx predniSONE [Deltasone] 20 mg PO TID #15 tab 05/04/15 01/14/20 01/14/20 06:51 Rx Active Meds: Active Medications Acetaminophen (Tylenol) 650 mg PO Q4H PRN PRN Reason: Pain MILD(1-3)/Fever >100.5/[facility]ANO Last Admin: 01/13/20 00:22 Dose: 650 mg Documented by: Gentamicin Sulfate (Gentamicin 0.3% Ophth Soln) 2 drops OS QID [facility] Last Admin: 01/14/20 13:28 Dose: 2 drops Documented by: REMDESIVIR 100 mg/ Sodium (Chloride) 250 mls @ 500 mls/hr IV Q24HR [facility] Stop: 01/18/20 10:29 Last Admin: 01/14/20 11:21 Dose: 500 mls/hr Documented by: Sodium Chloride (Nacl 0.9%) 50 mls @ 200 mls/hr IV Q24H [facility] Stop: 01/18/20 11:14 Methylprednisolone Sodium Succinate 80 mg/ Sodium Chloride 100 mls @ 200 mls/hr IV Q8H [facility] Ondansetron HCl (Zofran) 4 mg IV Q8H PRN PRN Reason: Nausea And Vomiting Oxycodone/Acetaminophen (Percocet 5/325) 1 tab PO Q6HR PRN PRN Reason: SEV PAIN Sodium Chloride (Sodium Chloride Flush Syringe 10 Ml) 10 ml IV BID [facility] Last Admin: 01/14/20 09:33 Dose: 10 ml Documented by: Sodium Chloride (Sodium Chloride Flush Syringe 10 Ml) 10 ml IV PRN PRN PRN Reason: LINE FLUSH Review of Systems All systems: negative Physical Examination Vital signs: Vital Signs Pulse Ox 95 01/12/20 12:42 General appearance: alert, other (Morbidly Obese, female, Mild respiratory distress at rest.) Eyes: non-icteric ENT: oropharynx moist Neck: supple, no JVD Ascultation: Bilateral: diminished breath sounds Cardiovascular: regular rate and rhythm Gastrointestinal: normoactive bowel sounds, soft, non-tender Integumentary: normal Extremities: no cyanosis, no edema Musculoskeletal: no deformities Gait: other (Patient is in the bed at this time.) normal mental status, non-focal exam, pupils equal and round, CN II-XII normal mood appropriate Results - Laboratory Findings CBC and BMP: 01/13/20 05:03 01/13/20 05:03 PT/INR, D-dimer D-Dimer 1080.13 ng/mlDDU (0-234) H 01/13/20 23:51 Abnormal lab findings: Abnormal Labs 01/12/20 01/12/20 01/12/20 14:00 14:00 14:00 MCH 26 L RDW 17.2 H [place] % (Auto) 8.6 H D-Dimer 777.87 H Sodium 133 L Chloride 95.4 L Glucose 119 H Calcium Lactate Dehydrogenase 584 H C-Reactive Protein 4.40 H Albumin 3.7 L Coronavirus (PCR) 01/12/20 01/13/20 01/13/20 Unknown 05:03 05:03 MCH 25 L RDW 16.9 H [place] % (Auto) 8.1 H D-Dimer Sodium Chloride 97.7 L Glucose 112 H Calcium 7.9 L Lactate Dehydrogenase C-Reactive Protein Albumin Coronavirus (PCR) Positive A 01/13/20 01/13/20 23:51 23:51 MCH RDW [place] % (Auto) D-Dimer 1080.13 H Sodium Chloride Glucose Calcium Lactate Dehydrogenase 522 H C-Reactive Protein 13.80 H Albumin Coronavirus (PCR) - Diagnostic Findings Chest x-ray: report reviewed, image reviewed Additional studies: CHEST 1 VIEW 1314 01/12/20 INDICATION / CLINICAL INFORMATION: Fever and shortness of breath. COMPARISON: None available. FINDINGS: SUPPORT DEVICES: None HEART / MEDIASTINUM: Upper limits of normal on this projection LUNGS / PLEURA: Mildly congested appearance is seen for the semiupright view. No areas of consolidation are seen. Slight patchy density is seen in the right upper lobe which could be artifactual but I would have difficulty excluding mild patchy interstitial infiltrate. No pneumothorax. ADDITIONAL FINDINGS: No significant additional findings. IMPRESSION: Mild congestion. Question of mild patchy infiltrate in the right upper lobe. Recommend clinical correlation. Assessment and Plan 9 YO Female with Obesity Hypoventilation Syndrome, Super Morbid Obesity presents to ED for evaluation. Patient states that she had experienced fever to 104 F, dry cough, and shortness of breath over the past 3 days with progressively worsening symptoms over the same time frame. Patient also reports malaise, fatigue, and generalized weakness. Patient transported to [facility] via private vehicle for further care and evaluation of the aforementioned symptoms. Patient seen and evaluated in the emergency department. Lab and imaging studies reviewed. Patient found to have a pulse oximetry of 73% on room air which is consistent with acute hypoxemic respiratory failure. Patient immediately placed on supplemental oxygen for acute hypoxemic respiratory failure. Chest x-ray revealed RUL pneumonia. Patient admitted to medical floor for further care. Patient initiated on pneumonia protocol as well as coronavirus 19 protocol. Infectious disease service consulted in ED. Patient denies chills, chest pain, palpitation, skin rash, nausea, vomiting, abdominal pain, diarrhea. No prior admission for review. Patient works in [employer]. Patient exposed to family member that was positive to COVID 19 who also works at the same restaurant. Patients COVID 19 is positive. Patient has no history of smoking, alcohol or drug abuse. Denies allergic to medications. and has two children. Patient denies hypertension, diabetes and asthma. Patient placed on vapotherm 100% FIO2. O2 saturation saturation running 87%. Chest xray 01/12/20 reported Mild congestion. Question of mild patchy infiltrate in the right upper lobe. Patient febrile initially. She is afebrile now. No leukocytosis. Patient started on I/V solumedrol and REMDESVIR. Recommend ABGs on O2. Place her on BIPAP 20/10, Rate 20, FIO2 100%. Recommend to transfer to ICU. Recommend prone position. If patients condition deteriorate , recommend intubation and mechanical ventilation. Patients D dimer is high. Recommend venous doppler studies of legs and angio CT of chest. Until above results come back ,Give her prophylactic S/C Lovenox. Patients Procalcitonin level is normal I spent direct critical care time of 65 minutes on this patient to get history, Examining the patient, review the chest xray, review lab results, talking to the nursing staff, talking to the respiratory therapy, talking infectious disease specialist and work out plan of treatment in this critically ill patient. - Patient Problems (1) Acute respiratory failure Current Visit: Yes Status: Acute Qualifiers: Respiratory failure complication: hypoxia Qualified Code(s): J96.01 - Acute respiratory failure with hypoxia Plan to address problem: BIPAP 20/10, rate 20, FIO2 100%. ABGs on O2 and BIPAP. Continue I/V solumedrol Continue REMDESVIR Lovenox 40 mg S/C QD. Recommend GI prophylaxis. Recommend Prone positioning. Recommend to transfer to ICU. (2) COVID-19 virus infection Current Visit: Yes Status: Acute Plan to address problem: Patient is on REMDESVIR. Patient is on I/V solumedrol. Infectious disease consults on the case. (3) Pneumonia Current Visit: Yes Status: Acute Qualifiers: Laterality: right Lung location: upper lobe of lung Plan to address problem: Patients procalcitonin not elevated. No leukocytosis. Antibiotics as per infectious disease specialists. (4) Morbid obesity with BMI of 60.0-69.9, adult Current Visit: Yes Status: Acute Plan to address problem: Recommend to loose weight. Patient may have sleep apnea. Recommend BIPAP. (5) Obesity hypoventilation syndrome Current Visit: Yes Status: Acute Plan to address problem: Recommend BIPAP. ABGs on O2 and on BIPAP.
[2020-01-14] MEDS: methylPREDNISolone Sod Suc 80 MG in SODIUM CHLORIDE 0.9% 100 ML IV SCH (17:51)
[2020-01-14 21:25] LABS: ABG HCO3 29.1 mmol/L (20.0-26.0); ABG Methemoglobin 0.7 % (0.0-1.5); ABG Oxygen Saturation 96.7 % (95.0-99.0); ABG PCO2 45.7 mm Hg; ABG PH 7.421 pH Units (7.350-7.450)
[2020-01-15] MEDS: methylPREDNISolone Sod Suc 80 MG in SODIUM CHLORIDE 0.9% 100 ML IV SCH (03:30)
--- NOTE | 2020-01-15 09:05 | Progress Note ---
Assessment and Plan Cultures: Blood cultures no growth so far Assessment: 39 years old female with history of super obesity, obstructive sleep apnea, admitted on 01/13/2020 due to 10-day history of runny nose, body aches, generalized malaise, dry cough, progressive shortness of breath: #Severe sepsis: hypotension, tachy better; secondary to severe COVID. #Severe cough with pneumonia: Initial sats 73% on room air. Patient is also tachycardic and hypotensive. Inflammatory markers elevated d-dimer 777-->1080. LDH 584-->522. CRP 44-->13. However normal ferritin. Procalcitonin 0.05. #Acute hypoxemic respiratory failure: remains high flow 100%, 30L sats down to 93%. #Super obese: Adjusting medication to the weight Recommendations: Obtain leg US r/o DVT Close monitoring Continue Remdesivir day 2 of 5, will likely extend to 10 days Continue Solu-Medrol 80 mg IV every 8 hour-higher dose due to weight Continue anticoagulation Daily biomarkers F/u Il-6 Consider CTA rule out PE and lower extremity ultrasound rule out DVT when stable Please consent for COVID-19 plasma and type and screen Guarded prognosis, high risk for deterioration, need for intubation, need for ECMO. Dr. Escalona will be covering from tomorrow until Sunday, Dr. Siegel will be covering Sunday Will follow. Yue Garcia MD Infectious Diseases Ship Rigger Apprentice [facility] ([facility]) M [phone] O [phone] Subjective Date of service: 01/15/20 Principal diagnosis: Severe COVID Interval history: Remains on FO2 100% 40L fever improving Objective - Exam Narrative Exam: Limited given PPE conservation - Constitutional Vitals: Vital Signs Temp Pulse Resp BP Pulse Ox 98.5 F 70 18 113/73 93 01/15/20 08:00 01/15/20 02:20 01/15/20 04:00 01/15/20 02:20 01/15/20 04:00 Temperature -Last 24 Hours Temperature 98.5 F Temperature 97.6 F Temperature 98.0 F Temperature 98.3 F - Labs CBC & Chem 7: 01/13/20 05:03 01/13/20 05:03 Labs: Abnormal lab results 01/14/20 Range/Units 21:15 ABG HCO3 29.1 H (20.0-26.0) mmol/L ABG Base Excess 4.0 H (-2.0-3.0) mmol/L
[2020-01-15] MEDS ORDERED: ENOXAPARIN 40 MG/0.4 ML INJ SUB-Q SCH (10:00)
[2020-01-15] MEDS: REMDESIVIR 100 MG in SODIUM CHLORIDE 0.9% 250ML 250 ML IV SCH (11:37)
[2020-01-15] MEDS: SODIUM CHLORIDE 0.9% 50 ML IV SCH (11:37)
[2020-01-15] MEDS: GENTAMICIN 0.3% OPHTH SOLN 5 ML OS SCH ×4 (11:39→21:40)
[2020-01-15] MEDS ORDERED: ENOXAPARIN 120 MG/0.8 ML INJ SUB-Q SCH (12:00)
--- NOTE | 2020-01-15 13:37 | Progress Note ---
Assessment and Plan Patient alert, awake. Says breathing better than yesterday.Complaining shortness of breath on exertion. Still on 100%,FIO2, vapotherm and O2 saturation running 98%. Patient afebrile. No leukocytosis. ABG ABG pH 7.421 pH Units (7.350-7.450) 01/14/20 21:15 ABG pCO2 45.7 mm Hg 01/14/20 21:15 ABG pO2 82.0 mm Hg (80.0-90.0) 01/14/20 21:15 ABG O2 Saturation 96.7 % (95.0-99.0) 01/14/20 21:15 on FIO2 100% and on vapotherm. Venous doppler studies reported negative for DVT. I spent direct critical care time of 40 minutes, review the chart, Examining the patient, Review labs,ultrasound of legs, talking to the respiratory therapy, talking to the nursing staff and work out plan of treatment. - Patient Problems (1) Acute respiratory failure Current Visit: Yes Status: Acute Qualifiers: Respiratory failure complication: hypoxia Qualified Code(s): J96.01 - Acute respiratory failure with hypoxia Plan to address problem: Vapotherm, FIO2 100%. Continue I/V solumedrol Continue REMDESVIR Lovenox 40 mg S/C QD. Recommend GI prophylaxis. Recommend Prone positioning. (2) COVID-19 virus infection Current Visit: Yes Status: Acute Plan to address problem: Patient is on REMDESVIR. Patient is on I/V solumedrol. Infectious disease consults on the case. (3) Pneumonia Current Visit: Yes Status: Acute Qualifiers: Laterality: right Lung location: upper lobe of lung Plan to address problem: Patients procalcitonin not elevated. No leukocytosis. Antibiotics as per infectious disease specialists. (4) Morbid obesity with BMI of 60.0-69.9, adult Current Visit: Yes Status: Acute Plan to address problem: Recommend to loose weight. Patient may have sleep apnea. Recommend BIPAP during night time and prn for shortness of breath during day time. (5) Obesity hypoventilation syndrome Current Visit: Yes Status: Acute Plan to address problem: Recommend BIPAP during night time and prn for shortness of breath and datime sleepiness during day time. Subjective Date of service: 01/15/20 Principal diagnosis: Severe COVID Interval history: Patient alert, awake. Says breathing better than yesterday.Complaining shortness of breath on exertion. Still on 100%,FIO2, vapotherm and O2 saturation running 98%. Patient afebrile. No leukocytosis. ABG ABG pH 7.421 pH Units (7.350-7.450) 01/14/20 21:15 ABG pCO2 45.7 mm Hg 01/14/20 21:15 ABG pO2 82.0 mm Hg (80.0-90.0) 01/14/20 21:15 ABG O2 Saturation 96.7 % (95.0-99.0) 01/14/20 21:15 on FIO2 100% and on vapotherm. Venous doppler studies reported negative for DVT Objective Vital Signs - 12hr 01/15/20 01/15/20 01/15/20 01:40 01:50 02:00 Temperature Pulse Rate 76 75 71 Respiratory 24 14 25 H Rate Blood Pressure 102/61 102/61 113/73 O2 Sat by Pulse 99 95 94 Oximetry 01/15/20 01/15/20 01/15/20 02:10 02:20 04:00 Temperature Pulse Rate 78 70 Respiratory 51 H 45 H 18 Rate Blood Pressure 113/73 113/73 O2 Sat by Pulse 85 88 93 Oximetry 01/15/20 01/15/20 01/15/20 08:00 09:00 12:00 Temperature 98.5 F 98.3 F Pulse Rate Respiratory 18 18 Rate Blood Pressure O2 Sat by Pulse 94 94 Oximetry Constitutional: no acute distress, alert, other (Morbidly Obese. Shortness of breath on exertion.) Eyes: non-icteric ENT: oropharynx moist Neck: supple, no JVD Ascultation: Bilateral: diminished breath sounds Cardiovascular: regular rate and rhythm Gastrointestinal: normoactive bowel sounds, soft, non-tender Integumentary: normal Extremities: no cyanosis, no edema Neurologic: normal mental status, non-focal exam, pupils equal and round, CN II- XII normal Psychiatric: mood appropriate CBC and BMP: 01/13/20 05:03 01/13/20 05:03 ABG, PT/INR, D-dimer: ABG ABG pH 7.421 pH Units (7.350-7.450) 01/14/20 21:15 ABG pCO2 45.7 mm Hg 01/14/20 21:15 ABG pO2 82.0 mm Hg (80.0-90.0) 01/14/20 21:15 ABG O2 Saturation 96.7 % (95.0-99.0) 01/14/20 21:15 PT/INR, D-dimer D-Dimer 1080.13 ng/mlDDU (0-234) H 01/13/20 23:51 Abnormal lab findings: Abnormal Labs 01/12/20 01/12/20 01/12/20 14:00 14:00 14:00 MCH 26 L RDW 17.2 H [place] % (Auto) 8.6 H D-Dimer 777.87 H ABG HCO3 ABG Base Excess Sodium 133 L Chloride 95.4 L Glucose 119 H Calcium Lactate Dehydrogenase 584 H C-Reactive Protein 4.40 H Albumin 3.7 L Coronavirus (PCR) 01/12/20 01/13/20 01/13/20 Unknown 05:03 05:03 MCH 25 L RDW 16.9 H [place] % (Auto) 8.1 H D-Dimer ABG HCO3 ABG Base Excess Sodium Chloride 97.7 L Glucose 112 H Calcium 7.9 L Lactate Dehydrogenase C-Reactive Protein Albumin Coronavirus (PCR) Positive A 01/13/20 01/13/20 01/14/20 23:51 23:51 21:15 MCH RDW [place] % (Auto) D-Dimer 1080.13 H ABG HCO3 29.1 H ABG Base Excess 4.0 H Sodium Chloride Glucose Calcium Lactate Dehydrogenase 522 H C-Reactive Protein 13.80 H Albumin Coronavirus (PCR) Prior PFT's, U/S of legs: report reviewed, image reviewed (Ultrsound of legs reported no DVT.)
[2020-01-15] MEDS: ENOXAPARIN 100 MG/1 ML INJ SUB-Q SCH ×2 (13:41→21:24)
[2020-01-15] MEDS: ENOXAPARIN 80 MG/0.8 ML INJ SUB-Q SCH ×2 (13:42→21:24)
[2020-01-15] MEDS: methylPREDNISolone Sod Succinate 40 MG/1 ML INJ IV SCH ×2 (13:42→21:40)
--- NOTE | 2020-01-15 13:46 | Vascular Lab Report ---
DUPLEX DOPPLER LOWER EXTREMITY VEINS, BILATERAL INDICATION / CLINICAL INFORMATION: eval for DVT. TECHNIQUE: Duplex doppler imaging was performed through the veins of both lower extremities using venous felix brijesh and other maneuvers. COMPARISON: None available. FINDINGS: RIGHT COMMON FEMORAL VEIN: Negative. RIGHT FEMORAL VEIN: Negative. RIGHT POPLITEAL VEIN: Negative. RIGHT CALF VEINS: Negative. LEFT COMMON FEMORAL VEIN: Negative. LEFT FEMORAL VEIN: Negative. LEFT POPLITEAL VEIN: Negative. LEFT CALF VEINS: Negative. ADDITIONAL FINDINGS: None. IMPRESSION: 1. No sonographic evidence for DVT in either lower extremity. Signer Name: Alpesh Pandey MD Signed: 01/15/2020 1:42 PM Workstation Name: [id number]
[2020-01-15 21:15] LABS: C-Reactive Protein 5.4 mg/dL (0.00-1.30)
--- NOTE | 2020-01-15 23:15 | Progress Note ---
Assessment and Plan / Acute hypoxic respiratory failure Patient on high flow 100% FiO2 Due to COVID-19 pneumonia Continue nebs, Solu-Medrol and wean off O2 as tolerated Consulted pulmonary / Severe sepsis Due to COVID-19 Continue IV remdesivir and follow inflammatory markers / COVID-19 virus PNA Current Visit: Yes Status: Acute Plan to address problem: Coronavirus protocol: Infectious disease service consulted in ED, prone ventilation while in bed, follow inflammatory markers Continue IV Solu-Medrol and IV remdesivir supportive care. / Obesity hypoventilation syndrome Supplemental oxygen, nebulizer therapy, incentive spirometry, CPAP at bedtime Outpatient pulmonology evaluation for sleep study. /Morbid obesity, dietary and exercise remote recommendation when clinically stable / DVT prophylaxis SCD to bilateral lower extremities while in bed, prophylactic heparin. 01/12: Positive for COVID 19, patient on high flow 75% Fio2. follow ID recommendation. cont on iv steroid, follow inflammatory markers 01/13: Patient on 100% Fio2. cont steroid, remdisivir. consent for plasma therapy. transfer to [facility], consult pulmonary. 01/14: patient remained on 100% FiO2, cont steroid, remdisivir. LE venous doppler negative for DVT. CTA cannot do because she exceeds wt limitation. cont therapeutic anticoagulation Subjective Date of service: 01/15/20 Principal diagnosis: Severe COVID Interval history: Patient seen and examined. Medical records and medication list reviewed. No acute event overnight noted by the RN. Patient complains of difficulty breathing even on resting. Patient is tolerating diet. Patient 100% FiO2 Discussed plan of care at bedside with patient. Objective - Exam Narrative Exam: GENERAL: well-developed and morbidly obese -[place] female lying on bed appeared to be in no discomfort. HEENT: Normocephalic. Atraumatic. No conjunctival congestion or icterus. Patient has moist mucous membranes. NECK: Supple. Trachea midline. CHEST/LUNGS: Diminished breath sound auscultated bilaterally, breathing nonlabored. HEART/CARDIOVASCULAR: Regular in rate and rhythm. S1 and S2 positive. ABDOMEN: Abdomen is soft, nontender. Patient has normal bowel sounds. SKIN: There is no rash. Warm and dry. NEURO: No focal motor deficit. Follows command. MUSCULOSKELETAL: No joint effusion or tenderness. EXTRIMITY: No edema, no cyanosis or clubbing. PSYCH: Cooperative. - Constitutional Vitals: Vital Signs - 12hr 01/15/20 01/15/20 01/15/20 11:20 11:30 11:40 Temperature Pulse Rate 67 69 69 Pulse Rate [ From Monitor] Respiratory 21 15 25 H Rate Blood Pressure 116/66 116/66 116/66 O2 Sat by Pulse 94 94 94 Oximetry 01/15/20 01/15/20 01/15/20 11:50 12:00 12:10 Temperature 98.3 F Pulse Rate 71 64 67 Pulse Rate [ From Monitor] Respiratory 18 9 L 27 H Rate Blood Pressure 116/66 113/64 113/64 O2 Sat by Pulse 94 92 92 Oximetry 01/15/20 01/15/20 01/15/20 12:20 12:30 12:40 Temperature Pulse Rate 84 72 70 Pulse Rate [ From Monitor] Respiratory 21 27 H 23 Rate Blood Pressure 113/64 113/64 113/64 O2 Sat by Pulse 93 96 94 Oximetry 01/15/20 01/15/20 01/15/20 12:50 13:00 13:10 Temperature Pulse Rate 77 74 74 Pulse Rate [ From Monitor] Respiratory 26 H 19 14 Rate Blood Pressure 113/64 122/64 122/64 O2 Sat by Pulse 91 100 89 Oximetry 01/15/20 01/15/20 01/15/20 13:20 13:30 13:40 Temperature Pulse Rate 76 74 75 Pulse Rate [ From Monitor] Respiratory 34 H 41 H 27 H Rate Blood Pressure 122/64 122/64 122/64 O2 Sat by Pulse 89 91 92 Oximetry 01/15/20 01/15/20 01/15/20 13:50 14:00 14:11 Temperature Pulse Rate 75 72 70 Pulse Rate [ From Monitor] Respiratory 22 20 22 Rate Blood Pressure 122/64 122/64 O2 Sat by Pulse 87 89 93 Oximetry 01/15/20 01/15/20 01/15/20 14:21 14:31 14:41 Temperature Pulse Rate 71 74 90 Pulse Rate [ From Monitor] Respiratory 25 H 26 H 28 H Rate Blood Pressure 120/71 120/71 120/71 O2 Sat by Pulse 91 90 92 Oximetry 01/15/20 01/15/20 01/15/20 14:51 15:00 15:11 Temperature Pulse Rate 75 71 72 Pulse Rate [ From Monitor] Respiratory 28 H 24 16 Rate Blood Pressure 120/71 130/73 130/73 O2 Sat by Pulse 99 97 96 Oximetry 01/15/20 01/15/20 01/15/20 15:21 15:31 15:41 Temperature Pulse Rate 73 74 73 Pulse Rate [ From Monitor] Respiratory 28 H 28 H 30 H Rate Blood Pressure 130/73 130/73 130/73 O2 Sat by Pulse 95 96 98 Oximetry 01/15/20 01/15/20 01/15/20 15:51 15:59 16:00 Temperature 98.2 F 98.6 F Pulse Rate 75 71 Pulse Rate [ 71 From Monitor] Respiratory 19 16 Rate Blood Pressure 130/73 123/67 O2 Sat by Pulse 97 98 Oximetry 01/15/20 01/15/20 01/15/20 16:11 16:21 16:31 Temperature Pulse Rate 67 71 67 Pulse Rate [ From Monitor] Respiratory 17 24 18 Rate Blood Pressure 123/67 123/67 123/67 O2 Sat by Pulse 97 97 97 Oximetry 01/15/20 01/15/20 01/15/20 16:41 16:51 17:01 Temperature Pulse Rate 69 71 69 Pulse Rate [ From Monitor] Respiratory 25 H 18 25 H Rate Blood Pressure 123/67 123/67 128/73 O2 Sat by Pulse 98 98 97 Oximetry 01/15/20 01/15/20 01/15/20 17:11 17:21 17:31 Temperature Pulse Rate 75 74 66 Pulse Rate [ From Monitor] Respiratory 17 20 24 Rate Blood Pressure 128/73 128/73 128/73 O2 Sat by Pulse 90 96 95 Oximetry 01/15/20 01/15/20 01/15/20 17:41 17:51 18:01 Temperature Pulse Rate 87 77 74 Pulse Rate [ From Monitor] Respiratory 14 19 26 H Rate Blood Pressure 128/73 128/73 128/73 O2 Sat by Pulse 97 94 98 Oximetry 01/15/20 01/15/20 01/15/20 18:11 18:21 18:31 Temperature Pulse Rate 75 79 79 Pulse Rate [ From Monitor] Respiratory 24 12 18 Rate Blood Pressure 104/36 104/36 104/36 O2 Sat by Pulse 97 97 92 Oximetry 01/15/20 01/15/20 01/15/20 18:41 18:51 19:00 Temperature 98.4 F Pulse Rate 76 77 75 Pulse Rate [ From Monitor] Respiratory 26 H 19 12 Rate Blood Pressure 104/36 104/36 108/64 O2 Sat by Pulse 96 96 95 Oximetry 01/15/20 01/15/20 01/15/20 19:11 19:21 19:31 Temperature Pulse Rate 72 62 73 Pulse Rate [ From Monitor] Respiratory 18 29 H 34 H Rate Blood Pressure 108/64 108/64 108/64 O2 Sat by Pulse 98 94 95 Oximetry 01/15/20 01/15/20 01/15/20 20:00 20:43 20:50 Temperature 98.4 F Pulse Rate 71 Pulse Rate [ 72 From Monitor] Respiratory 12 26 H Rate Blood Pressure 111/55 O2 Sat by Pulse 98 95 98 Oximetry 01/15/20 01/15/20 21:01 22:01 Temperature Pulse Rate 67 62 Pulse Rate [ From Monitor] Respiratory 16 25 H Rate Blood Pressure 110/55 110/55 O2 Sat by Pulse 97 94 Oximetry - Labs CBC & Chem 7: 01/13/20 05:03 01/13/20 05:03 Labs: Abnormal lab results 01/15/20 01/15/20 Range/Units 20:29 20:29 D-Dimer 1508.44 H (0-234) ng/mlDDU Lactate Dehydrogenase 389 H (91-180) units/L C-Reactive Protein 5.40 H (0.00-1.30) mg/dL
[2020-01-16] MEDS: methylPREDNISolone Sod Succinate 40 MG/1 ML INJ IV SCH ×3 (06:51→22:16)
[2020-01-16] MEDS: ENOXAPARIN 80 MG/0.8 ML INJ SUB-Q SCH ×2 (09:36→21:35)
[2020-01-16] MEDS: REMDESIVIR 100 MG in SODIUM CHLORIDE 0.9% 250ML 250 ML IV SCH (09:36)
[2020-01-16] MEDS: ENOXAPARIN 100 MG/1 ML INJ SUB-Q SCH ×2 (09:36→21:35)
[2020-01-16] MEDS: GENTAMICIN 0.3% OPHTH SOLN 5 ML OS SCH ×4 (09:37→21:36)
[2020-01-16] MEDS: SODIUM CHLORIDE 0.9% 50 ML IV SCH (10:06)
--- NOTE | 2020-01-16 10:41 | Progress Note ---
Assessment and Plan Acute hypoxemic respiratory failure Severe sepsis: secondary to severe COVID. COVID infection Multifocal pneumonia Extreme obesity -ABG now , CXR in am and prn -Wean supplemental oxygen to keep O2 sats >92% -Awake proning and lateral positioning to help with hypoxia- discussed it with her -Fluid conservative measures as tolerated by hemodynamics and renal function -Bronchodilators with pulmonary hygiene per RT, use MDI -Accuchecks with glycemic control per SSI (While critically ill target blood glucose of 140-180 mg/dL; avoid hypoglycemia) - Avoid benzodiazepines, reduce the possibility of delirium -Avoid nephrotoxins, closely monitor renal function - Stress ulcer prophylaxis, while on steroids and in acute hypoxic respiratory failure -Therapeutic anticoagulation -Get lower extremity dopplers r/o DVT - Mobility protocol, off loading , frequent turning and skin assessment for pressure ulcer prevention -Empiric antibiotics for CAP - Monitor hemodynamics closely COVID SPECIFIC INTERVENTIONS -Airborne, contact isolation for COVID per facility protocols -Consent for COVID 19 convalescent plasma infusion -Type and screen -Complete Remdesivir day 3 of 5, monitor for toxicities -Continue Solu-Medrol -Trend inflammatory markers per facility protocol -Continue all supportive care -Contact tracing and testing of her contacts Discussed with the ICU team-RT,RN Life threatening condition- Sepsis with COVID 19 ARDS acute hypoxemic r espiratory failure Mortality/Morbidity- High Complexity of medical decision making- High CONDITION: CRITICAL PROGNOSIS: GUARDED CODE STATUS: FULL CODE The high probability of a clinically significant, sudden or life-threatening deterioration of the [respiratory & cardiovascular] system(s) required my full and direct attention, intervention and personal management. The aggregate critical care time was [31] minutes without overlap. Time includes spent on; [x] Data Review and interpretation [x] Patient assessment and monitoring of vital signs [x] Documentation [x] Medication orders and management Subjective Date of service: 01/16/20 Principal diagnosis: Severe COVID Interval history: Follow up for : Acute hypoxemic respiratory failure on HFOT: COVID infection; Multifocal pneumonia:extreme obesity Seen and examined. Nursing and respiratory staff consulted. Vitals, labs, medications, chart and imaging reviewed No fevers overnight, no diarrhea or vomiting HFOT-Vapotherm at 100% and 35L flow Objective Vital Signs - 12hr 01/15/20 01/15/20 01/16/20 23:01 23:15 00:01 Temperature Pulse Rate 59 L 64 58 L Pulse Rate [ From Monitor] Respiratory 15 15 20 Rate Blood Pressure 119/63 109/54 111/61 O2 Sat by Pulse 94 93 97 Oximetry 01/16/20 01/16/20 01/16/20 00:15 01:01 01:09 Temperature Pulse Rate 61 Pulse Rate [ 57 L From Monitor] Respiratory 18 22 Rate Blood Pressure 119/71 O2 Sat by Pulse 97 91 98 Oximetry 01/16/20 01/16/20 01/16/20 01:12 02:01 03:01 Temperature 98.9 F Pulse Rate 62 50 L Pulse Rate [ From Monitor] Respiratory 16 16 Rate Blood Pressure 129/68 125/59 O2 Sat by Pulse 93 100 Oximetry 01/16/20 01/16/20 01/16/20 03:35 04:01 04:30 Temperature 98.7 F Pulse Rate 59 L Pulse Rate [ 53 L From Monitor] Respiratory 19 22 Rate Blood Pressure 128/62 O2 Sat by Pulse 99 98 Oximetry 01/16/20 01/16/20 01/16/20 05:01 06:01 07:00 Temperature Pulse Rate 51 L 61 59 L Pulse Rate [ From Monitor] Respiratory 34 H 29 H 19 Rate Blood Pressure 122/59 109/69 120/76 O2 Sat by Pulse 99 97 96 Oximetry 01/16/20 01/16/20 01/16/20 08:00 08:01 08:15 Temperature 98.1 F Pulse Rate 62 Pulse Rate [ 62 From Monitor] Respiratory 28 H 28 H Rate Blood Pressure 115/77 O2 Sat by Pulse 91 91 94 Oximetry 01/16/20 09:01 Temperature Pulse Rate 73 Pulse Rate [ From Monitor] Respiratory 28 H Rate Blood Pressure 117/62 O2 Sat by Pulse 96 Oximetry Constitutional: no acute distress, alert, other (Morbidly Obese. Shortness of breath on exertion.) Eyes: non-icteric ENT: oropharynx moist Neck: supple, no JVD Ascultation: Bilateral: diminished breath sounds Cardiovascular: regular rate and rhythm Gastrointestinal: normoactive bowel sounds, soft, non-tender Integumentary: normal Extremities: no cyanosis, no edema Neurologic: normal mental status, non-focal exam, pupils equal and round, CN II- XII normal Psychiatric: mood appropriate CBC and BMP: 01/13/20 05:03 01/13/20 05:03 ABG, PT/INR, D-dimer: ABG ABG pH 7.421 pH Units (7.350-7.450) 01/14/20 21:15 ABG pCO2 45.7 mm Hg 01/14/20 21:15 ABG pO2 82.0 mm Hg (80.0-90.0) 01/14/20 21:15 ABG O2 Saturation 96.7 % (95.0-99.0) 01/14/20 21:15 PT/INR, D-dimer D-Dimer 1508.44 ng/mlDDU (0-234) H 01/15/20 20:29 Abnormal lab findings: Abnormal Labs 01/12/20 01/12/20 01/12/20 14:00 14:00 14:00 MCH 26 L RDW 17.2 H [place] % (Auto) 8.6 H D-Dimer 777.87 H ABG HCO3 ABG Base Excess Sodium 133 L Chloride 95.4 L Glucose 119 H Calcium Lactate Dehydrogenase 584 H C-Reactive Protein 4.40 H Albumin 3.7 L Coronavirus (PCR) 01/12/20 01/13/20 01/13/20 Unknown 05:03 05:03 MCH 25 L RDW 16.9 H [place] % (Auto) 8.1 H D-Dimer ABG HCO3 ABG Base Excess Sodium Chloride 97.7 L Glucose 112 H Calcium 7.9 L Lactate Dehydrogenase C-Reactive Protein Albumin Coronavirus (PCR) Positive A 01/13/20 01/13/20 01/14/20 23:51 23:51 21:15 MCH RDW [place] % (Auto) D-Dimer 1080.13 H ABG HCO3 29.1 H ABG Base Excess 4.0 H Sodium Chloride Glucose Calcium Lactate Dehydrogenase 522 H C-Reactive Protein 13.80 H Albumin Coronavirus (PCR) 01/15/20 01/15/20 20:29 20:29 MCH RDW [place] % (Auto) D-Dimer 1508.44 H ABG HCO3 ABG Base Excess Sodium Chloride Glucose Calcium Lactate Dehydrogenase 389 H C-Reactive Protein 5.40 H Albumin Coronavirus (PCR)
--- NOTE | 2020-01-17 03:35 | Progress Note ---
Assessment and Plan / Acute hypoxic respiratory failure Patient on high flow 100% FiO2 Due to COVID-19 pneumonia Continue nebs, Solu-Medrol and wean off O2 as tolerated Consulted pulmonary / Severe sepsis Due to COVID-19 Continue IV remdesivir and follow inflammatory markers / COVID-19 virus PNA Current Visit: Yes Status: Acute Plan to address problem: Coronavirus protocol: Infectious disease service consulted in ED, prone ventilation while in bed, follow inflammatory markers Continue IV Solu-Medrol and IV remdesivir supportive care. / Obesity hypoventilation syndrome Supplemental oxygen, nebulizer therapy, incentive spirometry, CPAP at bedtime Outpatient pulmonology evaluation for sleep study. /Morbid obesity, dietary and exercise remote recommendation when clinically stable / DVT prophylaxis SCD to bilateral lower extremities while in bed, prophylactic heparin. 01/12: Positive for COVID 19, patient on high flow 75% Fio2. follow ID recommendation. cont on iv steroid, follow inflammatory markers 01/13: Patient on 100% Fio2. cont steroid, remdisivir. consent for plasma therapy. transfer to [facility], consult pulmonary. 01/14: patient remained on 100% FiO2, cont steroid, remdisivir. LE venous doppler negative for DVT. CTA cannot do because she exceeds wt limitation. cont therapeutic anticoagulation 01/15: patient on 88% FiO2. cont steroid, remdisivir day 3. follow inflammatory markers Brief History: 39 years old female with history of super obesity, obstructive sleep apnea, admitted on 01/13/2020 due to 10-day history of runny nose, body aches, generalized malaise, dry cough, progressive shortness of breath. positive for COVID 19, ID following. Subjective Date of service: 01/16/20 Principal diagnosis: Severe COVID Interval history: Patient seen and examined. Medical records and medication list reviewed. No acute event overnight noted by the RN. Patient complains of difficulty breathing even on resting. Patient is tolerating diet. Patient 88% FiO2 Discussed plan of care at bedside with patient. Objective - Exam Narrative Exam: GENERAL: well-developed and morbidly obese -[place] female lying on bed appeared to be in no discomfort. HEENT: Normocephalic. Atraumatic. No conjunctival congestion or icterus. Patient has moist mucous membranes. NECK: Supple. Trachea midline. CHEST/LUNGS: Diminished breath sound auscultated bilaterally, breathing nonlabored. HEART/CARDIOVASCULAR: Regular in rate and rhythm. S1 and S2 positive. ABDOMEN: Abdomen is soft, nontender. Patient has normal bowel sounds. SKIN: There is no rash. Warm and dry. NEURO: No focal motor deficit. Follows command. MUSCULOSKELETAL: No joint effusion or tenderness. EXTRIMITY: No edema, no cyanosis or clubbing. PSYCH: Cooperative. - Constitutional Vitals: Vital Signs - 12hr 01/16/20 01/16/20 01/16/20 16:00 16:01 17:01 Temperature 97.7 F Pulse Rate 69 70 Pulse Rate [ From Monitor] Respiratory 33 H 11 L Rate Blood Pressure 123/72 108/65 O2 Sat by Pulse 97 98 Oximetry 01/16/20 01/16/20 01/16/20 18:00 19:01 20:00 Temperature 98.7 F Pulse Rate 59 L 59 L Pulse Rate [ 65 From Monitor] Respiratory 20 11 L 22 Rate Blood Pressure 119/65 115/70 O2 Sat by Pulse 99 99 90 Oximetry 01/16/20 01/16/20 01/16/20 20:01 20:33 21:01 Temperature Pulse Rate 53 L 50 L Pulse Rate [ From Monitor] Respiratory 16 19 Rate Blood Pressure 129/76 129/76 O2 Sat by Pulse 100 98 100 Oximetry 01/16/20 01/16/20 01/16/20 22:01 23:01 23:54 Temperature Pulse Rate 47 L 52 L 53 L Pulse Rate [ From Monitor] Respiratory 11 L 17 20 Rate Blood Pressure 130/85 130/85 O2 Sat by Pulse 100 100 99 Oximetry 01/17/20 00:00 Temperature 97.5 F L Pulse Rate 49 L Pulse Rate [ 53 L From Monitor] Respiratory 14 Rate Blood Pressure O2 Sat by Pulse 100 Oximetry - Labs CBC & Chem 7: 01/13/20 05:03 01/13/20 05:03
[2020-01-17] MEDS: methylPREDNISolone Sod Succinate 40 MG/1 ML INJ IV SCH ×3 (05:14→21:23)
[2020-01-17 05:19] LABS: Hematocrit 39.4 % (30.3-42.9); Hemoglobin 12.3 gm/dl (10.1-14.3); Mean Corpuscular HGB Conc 31 % (30-34); Mean Corpuscular Volume 80 fl (79-97); Platelet Count 374 K/mm3 (140-440); Red Blood Count 4.93 M/mm3 (3.65-5.03); Red Cell Distribution Width 17.1 % (13.2-15.2)
[2020-01-17 05:48] LABS: BUN/Creatinine Ratio 29; Blood Urea Nitrogen 23 mg/dL (7-17); C-Reactive Protein 2.8 mg/dL (0.00-1.30); Calcium 8.7 mg/dL (8.4-10.2); Hemolysis Index 12
[2020-01-17] MEDS: SODIUM CHLORIDE 0.9% 50 ML IV SCH (10:36)
[2020-01-17] MEDS: ENOXAPARIN 100 MG/1 ML INJ SUB-Q SCH ×2 (10:36→21:23)
[2020-01-17] MEDS: GENTAMICIN 0.3% OPHTH SOLN 5 ML OS SCH ×4 (10:36→22:00)
[2020-01-17] MEDS: REMDESIVIR 100 MG in SODIUM CHLORIDE 0.9% 250ML 250 ML IV SCH (10:36)
[2020-01-17] MEDS: ENOXAPARIN 80 MG/0.8 ML INJ SUB-Q SCH ×2 (10:36→21:22)
--- NOTE | 2020-01-17 11:29 | Progress Note ---
Assessment and Plan Patient alert, awake. Says breathing getting better.Still has some shortness of breath on exertion.Patients O2 requirements slowly coming down. Patient is on vapotherm, FIO2 85% and O2 saturation running 99%. Patient afebrile. No leukocyt osis. Patient just received REMDESVIR. ABG ABG pH 7.421 pH Units (7.350-7.450) 01/14/20 21:15 ABG pCO2 45.7 mm Hg 01/14/20 21:15 ABG pO2 82.0 mm Hg (80.0-90.0) 01/14/20 21:15 ABG O2 Saturation 96.7 % (95.0-99.0) 01/14/20 21:15 on FIO2 100% and on vapotherm. Venous Doppler studies reported negative for DVT. Slowly wean FIO2. I spent direct critical care time of 40 minutes, review the chart, Examining the patient, Review labs,ultrasound of legs, talking to the respiratory therapy, talking to the nursing staff and work out plan of treatment. - Patient Problems (1) Acute respiratory failure Current Visit: Yes Status: Acute Qualifiers: Respiratory failure complication: hypoxia Qualified Code(s): J96.01 - Acute respiratory failure with hypoxia Plan to address problem: Vapotherm, FIO2 85%. Continue I/V solumedrol Continue REMDESVIR Lovenox 40 mg S/C QD. Recommend GI prophylaxis. Recommend Prone positioning. (2) COVID-19 virus infection Current Visit: Yes Status: Acute Plan to address problem: Patient is on REMDESVIR. Patient is on I/V solumedrol. Infectious disease consults on the case. (3) Pneumonia Current Visit: Yes Status: Acute Qualifiers: Laterality: right Lung location: upper lobe of lung Plan to address problem: Patients procalcitonin not elevated. No leukocytosis. Antibiotics as per infectious disease specialists. (4) Morbid obesity with BMI of 60.0-69.9, adult Current Visit: Yes Status: Acute Plan to address problem: Recommend to loose weight. Patient may have sleep apnea. Recommend BIPAP during night time and prn for shortness of breath during day time. (5) Obesity hypoventilation syndrome Current Visit: Yes Status: Acute Plan to address problem: Recommend BIPAP during night time and prn for shortness of breath and datime sleepiness during day time. Subjective Date of service: 01/17/20 Principal diagnosis: Severe COVID Interval history: Patient alert, awake. Says breathing getting better.Still has some shortness of breath on exertion.Patients O2 requirements slowly coming down. Patient is on vapotherm, FIO2 85% and O2 saturation running 99%. Patient afebrile. No leukocytosis. Patient just received REMDESVIR. ABG ABG pH 7.421 pH Units (7.350-7.450) 01/14/20 21:15 ABG pCO2 45.7 mm Hg 01/14/20 21:15 ABG pO2 82.0 mm Hg (80.0-90.0) 01/14/20 21:15 ABG O2 Saturation 96.7 % (95.0-99.0) 01/14/20 21:15 on FIO2 100% and on vapotherm. Venous Doppler studies reported negative for DVT. Slowly wean FIO2. Objective Vital Signs - 12hr 01/16/20 01/17/20 01/17/20 23:54 00:00 01:00 Temperature 97.5 F L Pulse Rate 53 L 49 L 60 Pulse Rate [ 53 L From Monitor] Respiratory 20 14 31 H Rate Blood Pressure O2 Sat by Pulse 99 100 93 Oximetry 01/17/20 01/17/20 01/17/20 02:00 03:00 04:00 Temperature 98.8 F Pulse Rate 60 56 L 50 L Pulse Rate [ 51 L From Monitor] Respiratory 24 28 H 13 Rate Blood Pressure 102/59 102/59 107/66 O2 Sat by Pulse 94 92 100 Oximetry 01/17/20 01/17/20 01/17/20 05:00 06:00 07:00 Temperature Pulse Rate 47 L 53 L 49 L Pulse Rate [ From Monitor] Respiratory 19 13 12 Rate Blood Pressure 118/67 118/67 118/67 O2 Sat by Pulse 99 98 99 Oximetry 01/17/20 01/17/20 01/17/20 08:00 09:00 10:00 Temperature 97.8 F Pulse Rate 47 L 55 L 51 L Pulse Rate [ 53 L From Monitor] Respiratory 19 13 28 H Rate Blood Pressure 118/67 118/67 118/67 O2 Sat by Pulse 91 99 96 Oximetry 01/17/20 11:00 Temperature Pulse Rate 52 L Pulse Rate [ From Monitor] Respiratory 16 Rate Blood Pressure 118/67 O2 Sat by Pulse 97 Oximetry Constitutional: no acute distress, alert, other (Morbidly Obese. Shortness of breath on exertion.) Eyes: non-icteric ENT: oropharynx moist Neck: supple, no JVD Ascultation: Bilateral: diminished breath sounds Cardiovascular: regular rate and rhythm Gastrointestinal: normoactive bowel sounds, soft, non-tender Integumentary: normal Extremities: no cyanosis, no edema Neurologic: normal mental status, non-focal exam, pupils equal and round, CN II- XII normal Psychiatric: mood appropriate CBC and BMP: 01/17/20 04:40 01/17/20 04:40 ABG, PT/INR, D-dimer: ABG ABG pH 7.421 pH Units (7.350-7.450) 01/14/20 21:15 ABG pCO2 45.7 mm Hg 01/14/20 21:15 ABG pO2 82.0 mm Hg (80.0-90.0) 01/14/20 21:15 ABG O2 Saturation 96.7 % (95.0-99.0) 01/14/20 21:15 PT/INR, D-dimer D-Dimer 1508.44 ng/mlDDU (0-234) H 01/15/20 20:29 Abnormal lab findings: Abnormal Labs 01/12/20 01/12/20 01/12/20 14:00 14:00 14:00 WBC MCH 26 L RDW 17.2 H [place] % (Auto) 8.6 H D-Dimer 777.87 H ABG HCO3 ABG Base Excess Sodium 133 L Chloride 95.4 L BUN Glucose 119 H Calcium Lactate Dehydrogenase 584 H C-Reactive Protein 4.40 H Albumin 3.7 L Coronavirus (PCR) 01/12/20 01/13/20 01/13/20 Unknown 05:03 05:03 WBC MCH 25 L RDW 16.9 H [place] % (Auto) 8.1 H D-Dimer ABG HCO3 ABG Base Excess Sodium Chloride 97.7 L BUN Glucose 112 H Calcium 7.9 L Lactate Dehydrogenase C-Reactive Protein Albumin Coronavirus (PCR) Positive A 01/13/20 01/13/20 01/14/20 23:51 23:51 21:15 WBC MCH RDW [place] % (Auto) D-Dimer 1080.13 H ABG HCO3 29.1 H ABG Base Excess 4.0 H Sodium Chloride BUN Glucose Calcium Lactate Dehydrogenase 522 H C-Reactive Protein 13.80 H Albumin Coronavirus (PCR) 01/15/20 01/15/20 01/17/20 20:29 20:29 04:40 WBC MCH RDW [place] % (Auto) D-Dimer 1508.44 H ABG HCO3 ABG Base Excess Sodium Chloride BUN Glucose Calcium Lactate Dehydrogenase 389 H 383 H C-Reactive Protein 5.40 H 2.80 H Albumin Coronavirus (PCR) 01/17/20 01/17/20 04:40 04:40 WBC 13.5 H MCH 25 L RDW 17.1 H [place] % (Auto) D-Dimer ABG HCO3 ABG Base Excess Sodium Chloride BUN 23 H Glucose 151 H Calcium Lactate Dehydrogenase C-Reactive Protein Albumin Coronavirus (PCR)
--- NOTE | 2020-01-17 15:03 | Progress Note ---
Subjective Date of service: 01/17/20 Principal diagnosis: Severe COVID Interval history: / Acute hypoxic respiratory failure Patient on high flow 100% FiO2 2/2 COVID-19 pneumonia Continue nebs, Solu-Medrol and wean off O2 as tolerated / Severe sepsis Due to COVID-19 Continue IV remdesivir and follow inflammatory markers / COVID-19 virus PNA Current Visit: Yes Status: Acute ID note reviewed prone ventilation while in bed, follow inflammatory markers Continue IV Solu-Medrol and IV remdesivir supportive care. Continue therapeutic Lovenox 1 mg/kg subcu every 12 hours / Obesity hypoventilation syndrome Supplemental oxygen, nebulizer therapy, incentive spirometry, CPAP at bedtime Outpatient pulmonology evaluation for sleep study. /Morbid obesity, dietary and exercise remote recommendation when clinically stable / DVT prophylaxis SCD to bilateral lower extremities while in bed 01/12: Positive for COVID 19, patient on high flow 75% Fio2. follow ID recommendation. cont on iv steroid, follow inflammatory markers 01/13: Patient on 100% Fio2. cont steroid, remdisivir. consent for plasma therapy. transfer to [facility], consult pulmonary. 01/14: patient remained on 100% FiO2, cont steroid, remdisivir. LE venous doppler negative for DVT. CTA cannot do because she exceeds wt limitation. cont therapeutic anticoagulation 01/15: patient on 88% FiO2. cont steroid, remdisivir day 3. follow inflammatory markers 01/16 patient is alert and oriented, she is on high flow via nasal cannula, she denies any chest pain, complains of mild cough mostly dry. Denies fever or chills, no acute events overnight, all interdisciplinary notes reviewed, lab results reviewed Brief History: 39 years old female with history of super obesity, obstructive sleep apnea, a dmitted on 01/13/2020 due to 10-day history of runny nose, body aches, generalized malaise, dry cough, progressive shortness of breath. positive for COVID 19, ID following. Patient seen and examined. Medical records and medication list reviewed. No acute event overnight noted by the RN. Patient is alert and oriented Oxygen saturation is 97 to 100% on high flow nasal cannula at 100% FiO2 Discussed plan of care at bedside with patient. 12 point review of systems is unremarkable except as stated above with mild dyspnea at rest Objective - Exam Narrative Exam: GENERAL: well-developed and morbidly obese -[place] female lying in the bed, mildly short of breath at rest HEENT: Normocephalic. No conjunctival congestion or icterus. NECK: Supple. Trachea midline. CHEST/LUNGS: Diminished breath sound auscultated bilaterally HEART/CARDIOVASCULAR: Regular in rate and rhythm. S1 and S2 positive. ABDOMEN: Abdomen is soft, nontender. Patient has normal bowel sounds. SKIN: There is no rash. Warm and dry. NEURO: No focal motor deficit. Follows command. MUSCULOSKELETAL: No joint effusion or tenderness. EXTRIMITY: No edema, no cyanosis or clubbing. PSYCH: Cooperative. Objective - Constitutional Vitals: Vital Signs - 12hr 01/17/20 01/17/20 01/17/20 03:00 04:00 05:00 Temperature 98.8 F Pulse Rate 56 L 50 L 47 L Pulse Rate [ 51 L From Monitor] Respiratory 28 H 13 19 Rate Blood Pressure 102/59 107/66 118/67 O2 Sat by Pulse 92 100 99 Oximetry 01/17/20 01/17/20 01/17/20 06:00 07:00 08:00 Temperature 97.8 F Pulse Rate 53 L 49 L 47 L Pulse Rate [ 53 L From Monitor] Respiratory 13 12 19 Rate Blood Pressure 118/67 118/67 118/67 O2 Sat by Pulse 98 99 91 Oximetry 01/17/20 01/17/20 01/17/20 09:00 10:00 11:00 Temperature Pulse Rate 55 L 51 L 52 L Pulse Rate [ From Monitor] Respiratory 13 28 H 16 Rate Blood Pressure 118/67 118/67 118/67 O2 Sat by Pulse 99 96 97 Oximetry 01/17/20 01/17/20 01/17/20 12:00 13:00 14:00 Temperature 98.7 F Pulse Rate 50 L 56 L 60 Pulse Rate [ 70 From Monitor] Respiratory 21 15 16 Rate Blood Pressure 114/74 107/64 111/66 O2 Sat by Pulse 97 94 100 Oximetry - Labs CBC & Chem 7: 01/17/20 04:40 01/17/20 04:40 Labs: Abnormal lab results 01/17/20 01/17/20 01/17/20 Range/Units 04:40 04:40 04:40 WBC 13.5 H (4.5-11.0) K/mm3 MCH 25 L (28-32) pg RDW 17.1 H (13.2-15.2) % BUN 23 H (7-17) mg/dL Glucose 151 H (65-100) mg/dL Lactate Dehydrogenase 383 H (91-180) units/L C-Reactive Protein 2.80 H (0.00-1.30) mg/dL
[2020-01-17] MEDS ORDERED: TOCILIZUMAB 400 MG in SODIUM CHLORIDE 0.9% 100 ML IV ONE (20:31)
--- NOTE | 2020-01-17 20:31 | Progress Note ---
Assessment and Plan Cultures: Blood cultures no growth so far Assessment: 39 years old female with history of super obesity, obstructive sleep apnea, admitted on 01/13/2020 due to 10-day history of runny nose, body aches, generalized malaise, dry cough, progressive shortness of breath: #Severe sepsis: hypotension, tachy better; secondary to severe COVID. #Severe cough with pneumonia: Initial sats 73% on room air. Patient is also tachycardic and hypotensive. Inflammatory markers elevated d-dimer 777-->1080. LDH 584-->522. CRP 44-->13. However normal ferritin. Procalcitonin 0.05. #Acute hypoxemic respiratory failure: remains high flow 100%, 30L sats down to 93%. #Super obese: Adjusting medication to the weight Recommendations: Close monitoring Continue Remdesivir day 4 of 5, will likely extend to 10 days Continue Solu-Medrol 80 mg IV every 8 hour-higher dose due to weight Continue anticoagulation Ordered Actemra on the basis of worsening oxygenation. 01/17/2020 Daily biomarkers F/u Il-6 Please consent for COVID-19 plasma - ordered type and screen Guarded prognosis, high risk for deterioration, need for intubation, need for ECMO. Dr. Siegel will be covering Sunday GSharath Escalona MD [facility] M: [phone] O: [phone] F: [phone] Subjective Date of service: 01/17/20 Principal diagnosis: Severe COVID Interval history: Remains afebrile, with a slightly elevated white count. On high flow nasal cannula 40 L/min 85% oxygen. Objective - Exam Narrative Exam: Physical exam deferred due to PPE conservation strategy. Reviewed in chart. - Constitutional Vitals: Vital Signs Temp Pulse Resp BP Pulse Ox 98.5 F 61 26 H 112/64 95 01/17/20 16:00 01/17/20 17:00 01/17/20 17:00 01/17/20 17:00 01/17/20 17:00 Temperature -Last 24 Hours Temperature 98.5 F Temperature 98.7 F Temperature 97.8 F Temperature 98.8 F Temperature 97.5 F - Labs CBC & Chem 7: 01/17/20 04:40 07/04/20 04:40 Labs: Abnormal lab results 01/17/20 01/17/20 01/17/20 Range/Units 04:40 04:40 04:40 WBC 13.5 H (4.5-11.0) K/mm3 MCH 25 L (28-32) pg RDW 17.1 H (13.2-15.2) % BUN 23 H (7-17) mg/dL Glucose 151 H (65-100) mg/dL Lactate Dehydrogenase 383 H (91-180) units/L C-Reactive Protein 2.80 H (0.00-1.30) mg/dL
[2020-01-18] MEDS: methylPREDNISolone Sod Succinate 40 MG/1 ML INJ IV SCH ×3 (06:53→22:20)
[2020-01-18] MEDS: ENOXAPARIN 80 MG/0.8 ML INJ SUB-Q SCH ×2 (09:59→22:21)
[2020-01-18] MEDS: ENOXAPARIN 100 MG/1 ML INJ SUB-Q SCH ×2 (09:59→22:21)
[2020-01-18] MEDS: SODIUM CHLORIDE 0.9% 50 ML IV SCH (10:00)
[2020-01-18] MEDS: REMDESIVIR 100 MG in SODIUM CHLORIDE 0.9% 250ML 250 ML IV SCH (10:00)
[2020-01-18] MEDS: GENTAMICIN 0.3% OPHTH SOLN 5 ML OS SCH ×4 (10:00→22:22)
--- NOTE | 2020-01-18 14:11 | Progress Note ---
Subjective Date of service: 01/18/20 Principal diagnosis: Severe COVID Interval history: / Acute hypoxic respiratory failure Patient on high flow nasal cannula 100% FiO2 2/2 COVID-19 pneumonia Continue nebs, Solu-Medrol and wean off O2 as tolerated / Severe sepsis Due to COVID-19 Continue IV remdesivir and follow inflammatory markers / COVID-19 PNA Current Visit: Yes Status: Acute ID note reviewed prone ventilation while in bed, follow inflammatory markers Continue IV Solu-Medrol and IV remdesivir supportive care. Continue therapeutic Lovenox 1 mg/kg subcu every 12 hours / Obesity hypoventilation syndrome Supplemental oxygen, nebulizer therapy, incentive spirometry, CPAP at bedtime Outpatient pulmonology evaluation for sleep study. /Morbid obesity, dietary and exercise remote recommendation when clinically stable / DVT prophylaxis SCD to bilateral lower extremities while in bed 01/12: Positive for COVID 19, patient on high flow 75% Fio2. follow ID recommendation. cont on iv steroid, follow inflammatory markers 01/13: Patient on 100% Fio2. cont steroid, remdisivir. consent for plasma therapy. transfer to [facility], consult pulmonary. 01/14: patient remained on 100% FiO2, cont steroid, remdisivir. LE venous doppler negative for DVT. CTA cannot do because she exceeds wt limitation. cont therapeutic anticoagulation 01/15: patient on 88% FiO2. cont steroid, remdisivir day 3. follow inflammatory markers 01/16 patient is alert and oriented, she is on high flow via nasal cannula, she denies any chest pain, complains of mild cough mostly dry. Denies fever or chills, no acute events overnight, all interdisciplinary notes reviewed, lab results reviewed 01/17 no acute events overnight, still feels short of breath, has mild cough, denies fever or chills, denies chest pain nausea or abdominal pain Lab results reviewed, ID note reviewed Brief History: 39 years old female with history of super obesity, obstructive sleep apnea, admitted on 01/13/2020 due to 10-day history of runny nose, body aches, generalized malaise, dry cough, progressive shortness of breath. positive for COVID 19, ID following. Patient seen and examined. Medical records and medication list reviewed. No acute event overnight noted by the RN. Patient is alert and oriented Oxygen saturation is 97 to 100% on high flow nasal cannula at 100% FiO2 Discussed plan of care at bedside with patient. 12 point review of systems is unremarkable except as stated above with mild dyspnea at rest Objective - Exam Narrative Exam: GENERAL: well-developed and morbidly obese -[place] female lying in the bed, mildly short of breath at rest HEENT: Normocephalic. No conjunctival congestion or icterus. NECK: Supple. Trachea midline. CHEST/LUNGS: Diminished breath sound auscultated bilaterally HEART/CARDIOVASCULAR: Regular in rate and rhythm. S1 and S2 positive. ABDOMEN: Abdomen is soft, nontender. Patient has normal bowel sounds. SKIN: There is no rash. Warm and dry. NEURO: No focal motor deficit. Follows command. MUSCULOSKELETAL: No joint effusion or tenderness. EXTRIMITY: No edema, no cyanosis or clubbing. PSYCH: Cooperative. Objective - Constitutional Vitals: Vital Signs - 12hr 01/18/20 01/18/20 01/18/20 03:00 04:00 05:00 Temperature 97.6 F Pulse Rate 41 L 45 L 43 L Pulse Rate [ 42 L From Monitor] Respiratory 16 23 9 L Rate Blood Pressure 103/65 103/65 103/65 O2 Sat by Pulse 100 95 Oximetry 01/18/20 01/18/20 01/18/20 06:00 07:00 08:00 Temperature 97.5 F L Pulse Rate 67 48 L 58 L Pulse Rate [ 58 L From Monitor] Respiratory 19 15 25 H Rate Blood Pressure 98/51 96/55 108/73 O2 Sat by Pulse 97 97 Oximetry 01/18/20 01/18/20 01/18/20 09:00 10:00 11:00 Temperature Pulse Rate 52 L 55 L 62 Pulse Rate [ From Monitor] Respiratory 22 21 15 Rate Blood Pressure 108/73 104/68 104/74 O2 Sat by Pulse 95 99 99 Oximetry 01/18/20 12:00 Temperature Pulse Rate 56 L Pulse Rate [ 50 L From Monitor] Respiratory 11 L Rate Blood Pressure 106/64 O2 Sat by Pulse 98 Oximetry - Labs CBC & Chem 7: 01/17/20 04:40 01/17/20 04:40 Labs: Abnormal lab results 01/17/20 Range/Units 20:18 D-Dimer 829.29 H (0-234) ng/mlDDU
--- NOTE | 2020-01-18 21:01 | Progress Note ---
Assessment and Plan Patient alert, awake. Says breathing getting Patients O2 requirements slowly coming down. Patient is on vapotherm, FIO2 70% and O2 saturation running 100%. Patient afebrile. No leukocytosis. Patient is on REMDESVIR. ABG ABG pH 7.421 pH Units (7.350-7.450) 01/14/20 21:15 ABG pCO2 45.7 mm Hg 01/14/20 21:15 ABG pO2 82.0 mm Hg (80.0-90.0) 01/14/20 21:15 ABG O2 Saturation 96.7 % (95.0-99.0) 01/14/20 21:15 on FIO2 100% and on vapotherm. Venous Doppler studies reported negative for DVT. Slowly wean FIO2. I spent direct critical care time of 35 minutes, review the chart, Examining the patient, Review labs,ultrasound of legs, talking to the respiratory therapy, talking to the nursing staff and work out plan of treatment. - Patient Problems (1) Acute respiratory failure Current Visit: Yes Status: Acute Qualifiers: Respiratory failure complication: hypoxia Qualified Code(s): J96.01 - Acute respiratory failure with hypoxia Plan to address problem: Vapotherm, FIO2 70%. Continue I/V solumedrol Continue REMDESVIR Lovenox 40 mg S/C QD. Recommend GI prophylaxis. Recommend Prone positioning. Continue wean FIO2. (2) COVID-19 virus infection Current Visit: Yes Status: Acute Plan to address problem: Patient is on REMDESVIR. Patient is on I/V solumedrol. Infectious disease consults on the case. (3) Pneumonia Current Visit: Yes Status: Acute Qualifiers: Laterality: right Lung location: upper lobe of lung Plan to address problem: Patients procalcitonin not elevated. No leukocytosis. Antibiotics as per infectious disease specialists. (4) Morbid obesity with BMI of 60.0-69.9, adult Current Visit: Yes Status: Acute Plan to address problem: Recommend to loose weight. Patient may have sleep apnea. Recommend BIPAP during night time and prn for shortness of breath during day time. (5) Obesity hypoventilation syndrome Current Visit: Yes Status: Acute Plan to address problem: Recommend BIPAP during night time and prn for shortness of breath and datime sleepiness during day time. Subjective Date of service: 01/18/20 Principal diagnosis: Severe COVID Interval history: Patient alert, awake. Says breathing getting Patients O2 requirements slowly coming down. Patient is on vapotherm, FIO2 70% and O2 saturation running 100%. Patient afebrile. No leukocytosis. Patient is on REMDESVIR. ABG ABG pH 7.421 pH Units (7.350-7.450) 01/14/20 21:15 ABG pCO2 45.7 mm Hg 01/14/20 21:15 ABG pO2 82.0 mm Hg (80.0-90.0) 01/14/20 21:15 ABG O2 Saturation 96.7 % (95.0-99.0) 01/14/20 21:15 on FIO2 100% and on vapotherm. Venous Doppler studies reported negative for DVT. Slowly wean FIO2. Objective Vital Signs - 12hr 01/18/20 01/18/20 01/18/20 10:00 11:00 12:00 Temperature 97.8 F Pulse Rate 55 L 62 56 L Pulse Rate [ 50 L From Monitor] Respiratory 21 15 11 L Rate Blood Pressure 104/68 104/74 106/64 O2 Sat by Pulse 99 99 98 Oximetry 01/18/20 01/18/20 01/18/20 13:00 14:00 16:00 Temperature 98.8 F Pulse Rate 50 L 52 L 45 L Pulse Rate [ 47 L From Monitor] Respiratory 15 17 15 Rate Blood Pressure 98/51 98/51 O2 Sat by Pulse 99 99 100 Oximetry 01/18/20 01/18/20 01/18/20 16:08 17:00 18:00 Temperature Pulse Rate 56 L 50 L 44 L Pulse Rate [ From Monitor] Respiratory 15 18 14 Rate Blood Pressure 98/51 98/51 98/51 O2 Sat by Pulse 100 100 Oximetry 01/18/20 01/18/20 19:00 19:52 Temperature 97.7 F Pulse Rate 47 L Pulse Rate [ From Monitor] Respiratory 11 L Rate Blood Pressure 98/51 O2 Sat by Pulse 100 Oximetry Constitutional: no acute distress, alert, other (Morbidly Obese. Shortness of breath on exertion.) Eyes: non-icteric ENT: oropharynx moist Neck: supple, no JVD Ascultation: Bilateral: diminished breath sounds Cardiovascular: regular rate and rhythm Gastrointestinal: normoactive bowel sounds, soft, non-tender Integumentary: normal Extremities: no cyanosis, no edema Neurologic: normal mental status, non-focal exam, pupils equal and round, CN II- XII normal Psychiatric: mood appropriate CBC and BMP: 01/17/20 04:40 01/17/20 04:40 ABG, PT/INR, D-dimer: ABG ABG pH 7.421 pH Units (7.350-7.450) 01/14/20 21:15 ABG pCO2 45.7 mm Hg 01/14/20 21:15 ABG pO2 82.0 mm Hg (80.0-90.0) 01/14/20 21:15 ABG O2 Saturation 96.7 % (95.0-99.0) 01/14/20 21:15 PT/INR, D-dimer D-Dimer 829.29 ng/mlDDU (0-234) H 01/17/20 20:18 Abnormal lab findings: Abnormal Labs 01/12/20 01/12/20 01/12/20 14:00 14:00 14:00 WBC MCH 26 L RDW 17.2 H [place] % (Auto) 8.6 H D-Dimer 777.87 H ABG HCO3 ABG Base Excess Sodium 133 L Chloride 95.4 L BUN Glucose 119 H Calcium Lactate Dehydrogenase 584 H C-Reactive Protein 4.40 H Albumin 3.7 L Coronavirus (PCR) 01/12/20 01/13/20 01/13/20 Unknown 05:03 05:03 WBC MCH 25 L RDW 16.9 H [place] % (Auto) 8.1 H D-Dimer ABG HCO3 ABG Base Excess Sodium Chloride 97.7 L BUN Glucose 112 H Calcium 7.9 L Lactate Dehydrogenase C-Reactive Protein Albumin Coronavirus (PCR) Positive A 01/13/20 01/13/20 01/14/20 23:51 23:51 21:15 WBC MCH RDW [place] % (Auto) D-Dimer 1080.13 H ABG HCO3 29.1 H ABG Base Excess 4.0 H Sodium Chloride BUN Glucose Calcium Lactate Dehydrogenase 522 H C-Reactive Protein 13.80 H Albumin Coronavirus (PCR) 01/15/20 01/15/20 01/17/20 20:29 20:29 04:40 WBC MCH RDW [place] % (Auto) D-Dimer 1508.44 H ABG HCO3 ABG Base Excess Sodium Chloride BUN Glucose Calcium Lactate Dehydrogenase 389 H 383 H C-Reactive Protein 5.40 H 2.80 H Albumin Coronavirus (PCR) 01/17/20 01/17/20 01/17/20 04:40 04:40 20:18 WBC 13.5 H MCH 25 L RDW 17.1 H [place] % (Auto) D-Dimer 829.29 H ABG HCO3 ABG Base Excess Sodium Chloride BUN 23 H Glucose 151 H Calcium Lactate Dehydrogenase C-Reactive Protein Albumin Coronavirus (PCR)
[2020-01-19 05:10] LABS: Hemoglobin 11.6 gm/dl (10.1-14.3); Mean Corpuscular HGB Conc 31 % (30-34); Mean Corpuscular Volume 79 fl (79-97); Platelet Count 361 K/mm3 (140-440); Red Blood Count 4.66 M/mm3 (3.65-5.03); Red Cell Distribution Width 16.7 % (13.2-15.2)
[2020-01-19 05:34] LABS: BUN/Creatinine Ratio 31; Blood Urea Nitrogen 22 mg/dL (7-17); Calcium 8.1 mg/dL (8.4-10.2); Hemolysis Index 31
[2020-01-19] MEDS: methylPREDNISolone Sod Succinate 40 MG/1 ML INJ IV SCH ×3 (05:40→22:03)
[2020-01-19] MEDS: GENTAMICIN 0.3% OPHTH SOLN 5 ML OS SCH ×4 (10:45→23:00)
--- NOTE | 2020-01-19 11:34 | XRay Report ---
CHEST 1 VIEW 01/19/2020 10:19 AM INDICATION / CLINICAL INFORMATION: SOB. COMPARISON: One view of the chest from 01/12/2020. FINDINGS: SUPPORT DEVICES: None. HEART / MEDIASTINUM: Stable. LUNGS / PLEURA: Aeration of the lungs has improved. No new area of consolidation. No significant pleu ral effusion. No pneumothorax. ADDITIONAL FINDINGS: No significant additional findings. IMPRESSION: Improved aeration of the lungs. Signer Name: Steve Cates MD Signed: 01/19/2020 11:29 AM Workstation Name: [id number]
--- NOTE | 2020-01-19 13:55 | Progress Note ---
Assessment and Plan Patient alert, awake. Patient Says breathing better. Patients O2 requirements slowly coming down. Patient is on vapotherm, FIO2 70% and O2 saturation running 100%. Recommend to decrease FIO2 to 50% and monitor O2 saturation. Patient afebr ile. No leukocytosis. Patient is on REMDESVIR. ABG ABG pH 7.421 pH Units (7.350-7.450) 01/14/20 21:15 ABG pCO2 45.7 mm Hg 01/14/20 21:15 ABG pO2 82.0 mm Hg (80.0-90.0) 01/14/20 21:15 ABG O2 Saturation 96.7 % (95.0-99.0) 01/14/20 21:15 on FIO2 100% and on vapotherm. Venous Doppler studies reported negative for DVT. Slowly wean FIO2 to 50%. I spent direct critical care time of 35 minutes, review the chart, Examining the patient, Review labs,ultrasound of legs, talking to the respiratory therapy, talking to the nursing staff and work out plan of treatment. - Patient Problems (1) Acute respiratory failure Current Visit: Yes Status: Acute Qualifiers: Respiratory failure complication: hypoxia Qualified Code(s): J96.01 - Acute respiratory failure with hypoxia Plan to address problem: Vapotherm, decrease FIO2 to 50%. Continue I/V solumedrol Continue REMDESVIR Lovenox 40 mg S/C QD. Recommend GI prophylaxis. Recommend Prone positioning. Continue wean FIO2. (2) COVID-19 virus infection Current Visit: Yes Status: Acute Plan to address problem: Patient is on REMDESVIR. Patient is on I/V solumedrol. Infectious disease consults on the case. (3) Pneumonia Current Visit: Yes Status: Acute Qualifiers: Laterality: right Lung location: upper lobe of lung Plan to address problem: Patients procalcitonin not elevated. No leukocytosis. Antibiotics as per infectious disease specialists. (4) Morbid obesity with BMI of 60.0-69.9, adult Current Visit: Yes Status: Acute Plan to address problem: Recommend to loose weight. Patient may have sleep apnea. Recommend BIPAP during night time and prn for shortness of breath during day time. (5) Obesity hypoventilation syndrome Current Visit: Yes Status: Acute Plan to address problem: Recommend BIPAP during night time and prn for shortness of breath and daytime sleepiness during day time. Subjective Date of service: 01/19/20 Principal diagnosis: Severe COVID Interval history: Patient alert, awake. Patient Says breathing better. Patients O2 requirements slowly coming down. Patient is on vapotherm, FIO2 70% and O2 saturation running 100%. Recommend to decrease FIO2 to 50% and monitor O2 saturation. Patient afebrile. No leukocytosis. Patient is on REMDESVIR. ABG ABG pH 7.421 pH Units (7.350-7.450) 01/14/20 21:15 ABG pCO2 45.7 mm Hg 01/14/20 21:15 ABG pO2 82.0 mm Hg (80.0-90.0) 01/14/20 21:15 ABG O2 Saturation 96.7 % (95.0-99.0) 01/14/20 21:15 on FIO2 100% and on vapotherm. Venous Doppler studies reported negative for DVT. Slowly wean FIO2 to 50%. Objective Vital Signs - 12hr 01/19/20 01/19/20 01/19/20 02:00 02:50 03:00 Temperature Pulse Rate 51 L 40 L Pulse Rate [ From Monitor] Respiratory 14 20 Rate Blood Pressure 117/75 119/77 O2 Sat by Pulse 90 100 Oximetry 01/19/20 01/19/20 01/19/20 04:00 05:00 06:00 Temperature 98.2 F Pulse Rate 45 L 44 L 46 L Pulse Rate [ 48 L From Monitor] Respiratory 20 11 L 21 Rate Blood Pressure 119/77 119/77 112/57 O2 Sat by Pulse 94 98 97 Oximetry 01/19/20 01/19/20 01/19/20 07:00 08:00 09:00 Temperature 97.9 F Pulse Rate 45 L Pulse Rate [ From Monitor] Respiratory 20 Rate Blood Pressure 120/73 O2 Sat by Pulse 96 100 Oximetry 01/19/20 12:00 Temperature 98.1 F Pulse Rate Pulse Rate [ From Monitor] Respiratory Rate Blood Pressure O2 Sat by Pulse Oximetry Constitutional: no acute distress, alert, other (Morbidly Obese. Shortness of breath on exertion.) Eyes: non-icteric ENT: oropharynx moist Neck: supple, no JVD Ascultation: Bilateral: diminished breath sounds Cardiovascular: regular rate and rhythm Gastrointestinal: normoactive bowel sounds, soft, non-tender Integumentary: normal Extremities: no cyanosis, no edema Neurologic: normal mental status, non-focal exam, pupils equal and round, CN II- XII normal Psychiatric: mood appropriate CBC and BMP: 01/19/20 04:56 01/19/20 04:56 ABG, PT/INR, D-dimer: ABG ABG pH 7.421 pH Units (7.350-7.450) 01/14/20 21:15 ABG pCO2 45.7 mm Hg 01/14/20 21:15 ABG pO2 82.0 mm Hg (80.0-90.0) 01/14/20 21:15 ABG O2 Saturation 96.7 % (95.0-99.0) 01/14/20 21:15 PT/INR, D-dimer D-Dimer 763.21 ng/mlDDU (0-234) H 01/19/20 04:56 Abnormal lab findings: Abnormal Labs 01/12/20 01/12/20 01/12/20 14:00 14:00 14:00 WBC MCH 26 L RDW 17.2 H Story % (Auto) 8.6 H D-Dimer 777.87 H ABG HCO3 ABG Base Excess Sodium 133 L Chloride 95.4 L BUN Glucose 119 H Calcium Lactate Dehydrogenase 584 H C-Reactive Protein 4.40 H Albumin 3.7 L Coronavirus (PCR) 01/12/20 01/13/20 01/13/20 Unknown 05:03 05:03 WBC MCH 25 L RDW 16.9 H Story % (Auto) 8.1 H D-Dimer ABG HCO3 ABG Base Excess Sodium Chloride 97.7 L BUN Glucose 112 H Calcium 7.9 L Lactate Dehydrogenase C-Reactive Protein Albumin Coronavirus (PCR) Positive A 01/13/20 01/13/20 01/14/20 23:51 23:51 21:15 WBC MCH RDW Story % (Auto) D-Dimer 1080.13 H ABG HCO3 29.1 H ABG Base Excess 4.0 H Sodium Chloride BUN Glucose Calcium Lactate Dehydrogenase 522 H C-Reactive Protein 13.80 H Albumin Coronavirus (PCR) 01/15/20 01/15/20 01/17/20 20:29 20:29 04:40 WBC MCH RDW Story % (Auto) D-Dimer 1508.44 H ABG HCO3 ABG Base Excess Sodium Chloride BUN Glucose Calcium Lactate Dehydrogenase 389 H 383 H C-Reactive Protein 5.40 H 2.80 H Albumin Coronavirus (PCR) 01/17/20 01/17/20 01/17/20 04:40 04:40 20:18 WBC 13.5 H MCH 25 L RDW 17.1 H Story % (Auto) D-Dimer 829.29 H ABG HCO3 ABG Base Excess Sodium Chloride BUN 23 H Glucose 151 H Calcium Lactate Dehydrogenase C-Reactive Protein Albumin Coronavirus (PCR) 01/19/20 01/19/20 01/19/20 04:56 04:56 04:56 WBC 12.0 H MCH 25 L RDW 16.7 H Story % (Auto) D-Dimer 763.21 H ABG HCO3 ABG Base Excess Sodium Chloride BUN 22 H Glucose 151 H Calcium 8.1 L Lactate Dehydrogenase 331 H C-Reactive Protein Albumin Coronavirus (PCR) Chest x-ray: report reviewed, image reviewed Additional Studies: CHEST 1 VIEW 01/19/2020 10:19 AM INDICATION / CLINICAL INFORMATION: SOB. COMPARISON: One view of the chest from 01/12/2020. FINDINGS: SUPPORT DEVICES: None. HEART / MEDIASTINUM: Stable. LUNGS / PLEURA: Aeration of the lungs has improved. No new area of consolidation. No significant pleural effusion. No pneumothorax. ADDITIONAL FINDINGS: No significant additional findings. IMPRESSION: Improved aeration of the lungs.
[2020-01-19] MEDS: ENOXAPARIN 100 MG/1 ML INJ SUB-Q SCH ×2 (14:53→22:59)
--- NOTE | 2020-01-19 18:03 | Progress Note ---
Assessment and Plan Cultures: Blood cultures no growth so far Assessment: 39 years old female with history of super obesity, obstructive sleep apnea, admitted on 01/13/2020 due to 10-day history of runny nose, body aches, generalized malaise, dry cough, progressive shortness of breath: #Severe sepsis: hypotension, tachy better; secondary to severe COVID. #Severe cough with COVID pneumonia: Markers significantly elevated. Completed 5 days of Remdesivir. Completed Actemra on 01/17/2020. Continue steroids. #Acute hypoxemic respiratory failure: weaned to 5 liters NC. #Extreme obese: Adjusting medication to the weight Recommendations: Completed 5 days of Remdesivir. Completed Actemra on 01/17/2020. Continue Solu-Medrol 80 mg IV every 8 hour, higher dose due to weight, probably start tapering at day 7 Continue anticoagulation Daily biomarkers may consider enrolling for COVID-19 convalescent plasma, but oxygenation seems to be improving, so can hold off for now Johnny Siegel MD, FACP [facility] ([facility]) C: [phone] O: [phone] F: [phone] Subjective Date of service: 01/19/20 Principal diagnosis: Severe COVID Interval history: No fever. Oxygen weaned to 5 L nasal cannula from high flow. Objective - Exam Narrative Exam: Physical Exam (reviewed in chart due to PPE conservation) Constitutional: limited due to PPE conservation strategy Head, Ears, Nose: limited due to PPE conservation strategy Eyes: limited due to PPE conservation strategy Neck: limited due to PPE conservation strategy Oral: limited due to PPE conservation strategy Cardiovascular: limited due to PPE conservation strategy Respiratory: limited due to PPE conservation strategy GI: limited due to PPE conservation strategy Musculoskeletal: limited due to PPE conservation strategy Skin: limited due to PPE conservation strategy Hem/Lymphatic: limited due to PPE conservation strategy Psych: limited due to PPE conservation strategy Neurological: limited due to PPE conservation strategy - Constitutional Vitals: Vital Signs Temp Pulse Resp BP Pulse Ox 98.1 F 45 L 20 120/73 97 01/19/20 16:00 01/19/20 07:00 01/19/20 07:00 01/19/20 07:00 01/19/20 15:00 Temperature -Last 24 Hours Temperature 98.1 F Temperature 98.1 F Temperature 97.9 F Temperature 98.2 F Temperature 97.7 F Temperature 97.7 F - Labs CBC & Chem 7: 01/19/20 04:56 01/19/20 04:56 Labs: Abnormal lab results 01/19/20 01/19/20 01/19/20 Range/Units 04:56 04:56 04:56 WBC 12.0 H (4.5-11.0) K/mm3 MCH 25 L (28-32) pg RDW 16.7 H (13.2-15.2) % D-Dimer 763.21 H (0-234) ng/mlDDU BUN 22 H (7-17) mg/dL Glucose 151 H (65-100) mg/dL Calcium 8.1 L (8.4-10.2) mg/dL Lactate Dehydrogenase 331 H (91-180) units/L
--- NOTE | 2020-01-19 18:07 | Progress Note ---
Assessment and Plan / Acute hypoxic respiratory failure Patient on high flow 100% FiO2 Due to COVID-19 pneumonia Continue nebs, Solu-Medrol and wean off O2 as tolerated Consulted pulmonary / Severe sepsis Due to COVID-19 Continue IV remdesivir and follow inflammatory markers / COVID-19 virus PNA Current Visit: Yes Status: Acute Plan to address problem: Coronavirus protocol: Infectious disease service consulted in ED, prone ventilation while in bed, follow inflammatory markers Continue IV Solu-Medrol and IV remdesivir supportive care. / Obesity hypoventilation syndrome Supplemental oxygen, nebulizer therapy, incentive spirometry, CPAP at bedtime Outpatient pulmonology evaluation for sleep study. /Morbid obesity, dietary and exercise remote recommendation when clinically stable / DVT prophylaxis SCD to bilateral lower extremities while in bed, prophylactic heparin. 01/12: Positive for COVID 19, patient on high flow 75% Fio2. follow ID recommendation. cont on iv steroid, follow inflammatory markers 01/13: Patient on 100% Fio2. cont steroid, remdisivir. consent for plasma therapy. transfer to [facility], consult pulmonary. 01/14: patient remained on 100% FiO2, cont steroid, remdisivir. LE venous doppler negative for DVT. CTA cannot do because she exceeds wt limitation. cont therapeutic anticoagulation 01/15: patient on 88% FiO2. cont steroid, remdisivir day 3. follow inflammatory markers 01/16 patient is alert and oriented, she is on high flow via nasal cannula, she denies any chest pain, complains of mild cough mostly dry. Denies fever or chills, no acute events overnight, all interdisciplinary notes reviewed, lab results reviewed 01/17 no acute events overnight, still feels short of breath, has mild cough, denies fever or chills, denies chest pain nausea or abdominal pain Lab results reviewed, ID note reviewed 01/18 still has SOB, on 70% Fio2, completed remdisivir. cont solumedrol iv. may consider enrolling for COVID-19 convalescent plasma, if her oxygenation does not improve. Subjective Date of service: 01/19/20 Principal diagnosis: Severe COVID Objective - Constitutional Vitals: Vital Signs - 12hr 01/19/20 01/19/20 01/19/20 07:00 08:00 09:00 Temperature 97.9 F Pulse Rate 45 L Respiratory 20 Rate Blood Pressure 120/73 O2 Sat by Pulse 96 100 Oximetry 01/19/20 01/19/20 01/19/20 12:00 15:00 16:00 Temperature 98.1 F 98.1 F Pulse Rate Respiratory Rate Blood Pressure O2 Sat by Pulse 97 Oximetry - Labs CBC & Chem 7: 01/19/20 04:56 01/19/20 04:56 Labs: Abnormal lab results 01/19/20 01/19/20 01/19/20 Range/Units 04:56 04:56 04:56 WBC 12.0 H (4.5-11.0) K/mm3 MCH 25 L (28-32) pg RDW 16.7 H (13.2-15.2) % D-Dimer 763.21 H (0-234) ng/mlDDU BUN 22 H (7-17) mg/dL Glucose 151 H (65-100) mg/dL Calcium 8.1 L (8.4-10.2) mg/dL Lactate Dehydrogenase 331 H (91-180) units/L
[2020-01-19] MEDS: ENOXAPARIN 80 MG/0.8 ML INJ SUB-Q SCH (23:12)
[2020-01-20] MEDS: methylPREDNISolone Sod Succinate 40 MG/1 ML INJ IV SCH (09:22)
[2020-01-20] MEDS: ENOXAPARIN 80 MG/0.8 ML INJ SUB-Q SCH ×3 (09:22→22:35)
[2020-01-20] MEDS: ENOXAPARIN 100 MG/1 ML INJ SUB-Q SCH ×2 (11:04→22:35)
[2020-01-20] MEDS: GENTAMICIN 0.3% OPHTH SOLN 5 ML OS SCH ×3 (11:05→22:36)
--- NOTE | 2020-01-20 13:35 | Progress Note ---
Assessment and Plan Patient alert, awake.Sitting up in chair. Patient Says breathing better. Patients O2 requirements came down. Patient is on nasal canula 5 litres and O2 saturation running 97%. Patient afebrile. Mild leukocytosis. Patient is on REMDESVIR. Patient can be transfer to medical floor from pulmonary point of view. I spent direct critical care time of 32 minutes, review the chart, Examining the patient, Review labs, talking to the respiratory therapy, talking to the nursing staff and work out plan of treatment. - Patient Problems (1) Acute respiratory failure Current Visit: Yes Status: Acute Qualifiers: Respiratory failure complication: hypoxia Qualified Code(s): J96.01 - Acute respiratory failure with hypoxia Plan to address problem: O2 5 litres via nasal canula. Continue I/V solumedrol Continue REMDESVIR Lovenox 40 mg S/C QD. Recommend GI prophylaxis. Recommend Prone positioning. (2) COVID-19 virus infection Current Visit: Yes Status: Acute Plan to address problem: Patient is on REMDESVIR. Patient is on I/V solumedrol. Infectious disease consults on the case. (3) Pneumonia Current Visit: Yes Status: Acute Qualifiers: Laterality: right Lung location: upper lobe of lung Plan to address problem: Patients procalcitonin not elevated. No leukocytosis. Antibiotics as per infectious disease specialists. (4) Morbid obesity with BMI of 60.0-69.9, adult Current Visit: Yes Status: Acute Plan to address problem: Recommend to loose weight. Patient may have sleep apnea. Recommend BIPAP during night time and prn for shortness of breath during day time. (5) Obesity hypoventilation syndrome Current Visit: Yes Status: Acute Plan to address problem: Recommend BIPAP during night time and prn for shortness of breath and daytime sleepiness during day time. Subjective Date of service: 01/20/20 Principal diagnosis: Severe COVID Interval history: Patient alert, awake.Sitting up in chair. Patient Says breathing better. Patients O2 requirements came down. Patient is on nasal canula 5 litres and O2 saturation running 97%. Patient afebrile. Mild leukocytosis. Patient is on REMDESVIR. Patient can be transfer to medical floor from pulmonary point of view. Objective Vital Signs - 12hr 01/20/20 01/20/20 01/20/20 02:01 03:01 04:00 Temperature Pulse Rate 43 L 50 L 47 L Pulse Rate [ 47 L From Monitor] Respiratory 19 10 L 20 Rate Blood Pressure 104/51 104/51 O2 Sat by Pulse 98 99 95 Oximetry 01/20/20 01/20/20 01/20/20 04:01 05:01 06:01 Temperature Pulse Rate 47 L 47 L 49 L Pulse Rate [ From Monitor] Respiratory 20 18 21 Rate Blood Pressure 104/51 104/51 119/34 O2 Sat by Pulse 96 99 96 Oximetry 01/20/20 01/20/20 01/20/20 07:01 08:00 08:01 Temperature 98.1 F Pulse Rate 49 L 52 L 52 L Pulse Rate [ From Monitor] Respiratory 23 26 H Rate Blood Pressure 113/74 113/74 O2 Sat by Pulse 95 96 Oximetry 01/20/20 01/20/20 01/20/20 09:01 10:01 11:01 Temperature Pulse Rate 65 58 L 59 L Pulse Rate [ From Monitor] Respiratory 21 23 12 Rate Blood Pressure 102/59 104/65 104/65 O2 Sat by Pulse 96 97 96 Oximetry 01/20/20 01/20/20 12:00 12:07 Temperature 98.4 F Pulse Rate 58 L Pulse Rate [ From Monitor] Respiratory 18 Rate Blood Pressure 102/60 O2 Sat by Pulse 96 97 Oximetry Constitutional: no acute distress, alert, other (Morbidly Obese. Shortness of br eath on exertion.) Eyes: non-icteric ENT: oropharynx moist Neck: supple, no JVD Ascultation: Bilateral: diminished breath sounds Cardiovascular: regular rate and rhythm Gastrointestinal: normoactive bowel sounds, soft, non-tender Integumentary: normal Extremities: no cyanosis, no edema Neurologic: normal mental status, non-focal exam, pupils equal and round, CN II- XII normal Psychiatric: mood appropriate CBC and BMP: 01/19/20 04:56 01/19/20 04:56 ABG, PT/INR, D-dimer: ABG ABG pH 7.421 pH Units (7.350-7.450) 01/14/20 21:15 ABG pCO2 45.7 mm Hg 01/14/20 21:15 ABG pO2 82.0 mm Hg (80.0-90.0) 01/14/20 21:15 ABG O2 Saturation 96.7 % (95.0-99.0) 01/14/20 21:15 PT/INR, D-dimer D-Dimer 763.21 ng/mlDDU (0-234) H 01/19/20 04:56 Abnormal lab findings: Abnormal Labs 01/12/20 01/12/20 01/12/20 14:00 14:00 14:00 WBC MCH 26 L RDW 17.2 H Hendry % (Auto) 8.6 H D-Dimer 777.87 H ABG HCO3 ABG Base Excess Sodium 133 L Chloride 95.4 L BUN Glucose 119 H Calcium Lactate Dehydrogenase 584 H C-Reactive Protein 4.40 H Albumin 3.7 L Coronavirus (PCR) 01/12/20 01/13/20 01/13/20 Unknown 05:03 05:03 WBC MCH 25 L RDW 16.9 H Hendry % (Auto) 8.1 H D-Dimer ABG HCO3 ABG Base Excess Sodium Chloride 97.7 L BUN Glucose 112 H Calcium 7.9 L Lactate Dehydrogenase C-Reactive Protein Albumin Coronavirus (PCR) Positive A 01/13/20 01/13/20 01/14/20 23:51 23:51 21:15 WBC MCH RDW Hendry % (Auto) D-Dimer 1080.13 H ABG HCO3 29.1 H ABG Base Excess 4.0 H Sodium Chloride BUN Glucose Calcium Lactate Dehydrogenase 522 H C-Reactive Protein 13.80 H Albumin Coronavirus (PCR) 01/15/20 01/15/20 01/17/20 20:29 20:29 04:40 WBC MCH RDW Hendry % (Auto) D-Dimer 1508.44 H ABG HCO3 ABG Base Excess Sodium Chloride BUN Glucose Calcium Lactate Dehydrogenase 389 H 383 H C-Reactive Protein 5.40 H 2.80 H Albumin Coronavirus (PCR) 01/17/20 01/17/20 01/17/20 04:40 04:40 20:18 WBC 13.5 H MCH 25 L RDW 17.1 H Hendry % (Auto) D-Dimer 829.29 H ABG HCO3 ABG Base Excess Sodium Chloride BUN 23 H Glucose 151 H Calcium Lactate Dehydrogenase C-Reactive Protein Albumin Coronavirus (PCR) 01/19/20 01/19/20 01/19/20 04:56 04:56 04:56 WBC 12.0 H MCH 25 L RDW 16.7 H Hendry % (Auto) D-Dimer 763.21 H ABG HCO3 ABG Base Excess Sodium Chloride BUN 22 H Glucose 151 H Calcium 8.1 L Lactate Dehydrogenase 331 H C-Reactive Protein Albumin Coronavirus (PCR)
--- NOTE | 2020-01-20 13:57 | Progress Note ---
Assessment and Plan Cultures: Blood cultures no growth so far Assessment: 39 years old female with history of super obesity, obstructive sleep apnea, admitted on 01/13/2020 due to 10-day history of runny nose, body aches, generalized malaise, dry cough, progressive shortness of breath: #Severe sepsis: hypotension, tachy better; secondary to severe COVID. #Severe cough with COVID pneumonia: Markers significantly elevated. Completed 5 days of Remdesivir. Completed Actemra on 01/17/2020. Continue steroids. #Acute hypoxemic respiratory failure: weaned to 5 liters NC. #Extreme obese: Adjusting medication to the weight Recommendations: Continue Solu-Medrol, higher dose due to weight, probably start tapering tomorrow onwards Continue anticoagulation Daily biomarkers may consider enrolling for COVID-19 convalescent plasma, but oxygenation continues to improve, so can hold off for now Johnny Siegel MD, FACP [facility] ([facility]) C: [phone] O: [phone] F: [phone] Subjective Date of service: 01/20/20 Principal diagnosis: Severe COVID Interval history: No fever. Oxygen being weaned. Stable Objective - Exam Narrative Exam: Physical Exam (reviewed in chart due to PPE conservation) Constitutional: limited due to PPE conservation strategy Head, Ears, Nose: limited due to PPE conservation strategy Eyes: limited due to PPE conservation strategy Neck: limited due to PPE conservation strategy Oral: limited due to PPE conservation strategy Cardiovascular: limited due to PPE conservation strategy Respiratory: limited due to PPE conservation strategy GI: limited due to PPE conservation strategy Musculoskeletal: limited due to PPE conservation strategy Skin: limited due to PPE conservation strategy Hem/Lymphatic: limited due to PPE conservation strategy Psych: limited due to PPE conservation strategy Neurological: limited due to PPE conservation strategy - Constitutional Vitals: Vital Signs Temp Pulse Resp BP Pulse Ox 98.4 F 57 L 14 108/62 96 01/20/20 12:00 01/20/20 13:01 01/20/20 13:01 01/20/20 13:01 01/20/20 13:01 Temperature -Last 24 Hours Temperature 98.4 F Temperature 98.1 F Temperature 97.6 F Temperature 97.9 F Temperature 98.1 F - Labs CBC & Chem 7: 01/19/20 04:56 01/19/20 04:56
[2020-01-20] MEDS ORDERED: methylPREDNISolone Sod Succinate 125 MG/2 ML INJ IV SCH (14:00)
--- NOTE | 2020-01-20 17:04 | Progress Note ---
Assessment and Plan / Acute hypoxic respiratory failure Patient on high flow 100% FiO2 Due to COVID-19 pneumonia Continue nebs, Solu-Medrol and wean off O2 as tolerated Consulted pulmonary / Severe sepsis Due to COVID-19 s/p IV remdesivir for 5 days follow inflammatory markers / COVID-19 virus PNA Current Visit: Yes Status: Acute Plan to address problem: Coronavirus protocol: Infectious disease service consulted in ED, prone ventilation while in bed, follow inflammatory markers Continue IV Solu-Medrol, s/p IV remdesivir total 5 dose supportive care. / Obesity hypoventilation syndrome Supplemental oxygen, nebulizer therapy, incentive spirometry, CPAP at bedtime Outpatient pulmonology evaluation for sleep study. /Morbid obesity, dietary and exercise remote recommendation when clinically stable / DVT prophylaxis SCD to bilateral lower extremities while in bed, prophylactic heparin. 01/12: Positive for COVID 19, patient on high flow 75% Fio2. follow ID recommendation. cont on iv steroid, follow inflammatory markers 01/13: Patient on 100% Fio2. cont steroid, remdisivir. consent for plasma therapy. transfer to [facility], consult pulmonary. 01/14: patient remained on 100% FiO2, cont steroid, remdisivir. LE venous doppler negative for DVT. CTA cannot do because she exceeds wt limitation. cont therapeutic anticoagulation 01/15: patient on 88% FiO2. cont steroid, remdisivir day 3. follow inflammatory markers 01/16 patient is alert and oriented, she is on high flow via nasal cannula, she denies any chest pain, complains of mild cough mostly dry. Denies fever or chills, no acute events overnight, all interdisciplinary notes donny reid, lab results reviewed 01/17 no acute events overnight, still feels short of breath, has mild cough, denies fever or chills, denies chest pain nausea or abdominal pain Lab results reviewed, ID note reviewed 01/18 still has SOB, on 70% Fio2, completed remdisivir. cont solumedrol iv. may consider enrolling for COVID-19 convalescent plasma, if her oxygenation does not improve. 01/19 patient on 5 L nasal cannula, continue to taper of Solu-Medrol. Transfer to telemetry Subjective Date of service: 01/20/20 Principal diagnosis: Severe COVID Objective - Constitutional Vitals: Vital Signs - 12hr 01/20/20 01/20/20 01/20/20 06:01 07:01 08:00 Temperature 98.1 F Pulse Rate 49 L 49 L 52 L Respiratory 21 23 Rate Blood Pressure 119/34 113/74 O2 Sat by Pulse 96 95 Oximetry 01/20/20 01/20/20 01/20/20 08:01 09:01 10:01 Temperature Pulse Rate 52 L 65 58 L Respiratory 26 H 21 23 Rate Blood Pressure 113/74 102/59 104/65 O2 Sat by Pulse 96 96 97 Oximetry 01/20/20 01/20/20 01/20/20 11:01 12:00 12:07 Temperature 98.4 F Pulse Rate 59 L 58 L Respiratory 12 18 Rate Blood Pressure 104/65 102/60 O2 Sat by Pulse 96 96 97 Oximetry 01/20/20 01/20/20 01/20/20 13:01 14:01 15:01 Temperature Pulse Rate 57 L 60 59 L Respiratory 14 22 16 Rate Blood Pressure 108/62 100/61 101/57 O2 Sat by Pulse 96 100 98 Oximetry 01/20/20 01/20/20 16:00 16:01 Temperature Pulse Rate 51 L 51 L Respiratory 11 L Rate Blood Pressure 116/72 O2 Sat by Pulse 96 Oximetry - Labs CBC & Chem 7: 01/19/20 04:56 01/19/20 04:56
[2020-01-20] MEDS: methylPREDNISolone Sod Succinate 125 MG/2 ML INJ IV SCH (22:35)
[2020-01-21] MEDS: methylPREDNISolone Sod Succinate 125 MG/2 ML INJ IV SCH (09:59)
[2020-01-21] MEDS: ENOXAPARIN 100 MG/1 ML INJ SUB-Q SCH (10:00)
[2020-01-21] MEDS: ENOXAPARIN 80 MG/0.8 ML INJ SUB-Q SCH (10:00)
[2020-01-21] MEDS: GENTAMICIN 0.3% OPHTH SOLN 5 ML OS SCH ×3 (10:01→14:19)
[2020-01-21] MEDS ORDERED: PANTOPRAZOLE 40 MG TAB PO SCH (11:00)
--- NOTE | 2020-01-21 12:54 | Progress Note ---
Assessment and Plan Patient alert, awake. Patient Says breathing better. Patients O2 requirements came down. Patient is on nasal canula 5 litres and O2 saturation running 94%. No complaint of chest pain ,shortness of breath or cough.Patient afebrile. Mild leukocytosis. Patient treated with REMDESVIR. - Patient Problems (1) Acute respiratory failure Current Visit: Yes Status: Acute Qualifiers: Respiratory failure complication: hypoxia Qualified Code(s): J96.01 - Acute respiratory failure with hypoxia Plan to address problem: O2 5 litres via nasal canula. Continue I/V solumedrol Lovenox 40 mg S/C QD. Recommend GI prophylaxis. Recommend Prone positioning. (2) COVID-19 virus infection Current Visit: Yes Status: Acute Plan to address problem: Patient finished course of REMDESVIR. Patient is on I/V solumedrol. Infectious disease consults on the case. (3) Pneumonia Current Visit: Yes Status: Acute Qualifiers: Laterality: right Lung location: upper lobe of lung Plan to address problem: Patients procalcitonin not elevated. No leukocytosis. Antibiotics as per infectious disease specialists. (4) Morbid obesity with BMI of 60.0-69.9, adult Current Visit: Yes Status: Acute Plan to address problem: Recommend to loose weight. Patient may have sleep apnea. Recommend BIPAP during night time and prn for shortness of breath during day time. Recommend sleep study as out patient. (5) Obesity hypoventilation syndrome Current Visit: Yes Status: Acute Plan to address problem: Recommend BIPAP during night time and prn for shortness of breath and daytime sleepiness during day time. Recommend sleep study as out patient. Subjective Date of service: 01/21/20 Principal diagnosis: Severe COVID Interval history: Patient alert, awake. Patient Says breathing better. Patients O2 requirements came down. Patient is on nasal canula 5 litres and O2 saturation running 94%. No complaint of chest pain ,shortness of breath or cough.Patient afebrile. Mild leukocytosis. Patient treated with REMDESVIR. Objective Vital Signs - 12hr 01/21/20 01/21/20 01/21/20 07:45 07:47 10:00 Temperature 97.7 F Pulse Rate 72 18 L Respiratory 18 Rate Blood Pressure 90/51 O2 Sat by Pulse 97 Oximetry Constitutional: no acute distress, alert, other (Morbidly Obese. ) Eyes: non-icteric ENT: oropharynx moist Neck: supple, no JVD Ascultation: Bilateral: diminished breath sounds Cardiovascular: regular rate and rhythm Gastrointestinal: normoactive bowel sounds, soft, non-tender Integumentary: normal Extremities: no cyanosis, no edema Neurologic: normal mental status, non-focal exam, pupils equal and round, CN II- XII normal Psychiatric: mood appropriate CBC and BMP: 01/19/20 04:56 01/19/20 04:56 ABG, PT/INR, D-dimer: ABG ABG pH 7.421 pH Units (7.350-7.450) 01/14/20 21:15 ABG pCO2 45.7 mm Hg 01/14/20 21:15 ABG pO2 82.0 mm Hg (80.0-90.0) 01/14/20 21:15 ABG O2 Saturation 96.7 % (95.0-99.0) 01/14/20 21:15 PT/INR, D-dimer D-Dimer 763.21 ng/mlDDU (0-234) H 01/19/20 04:56 Abnormal lab findings: Abnormal Labs 01/12/20 01/12/20 01/12/20 14:00 14:00 14:00 WBC MCH 26 L RDW 17.2 H Spink % (Auto) 8.6 H D-Dimer 777.87 H ABG HCO3 ABG Base Excess Sodium 133 L Chloride 95.4 L BUN Glucose 119 H Calcium Lactate Dehydrogenase 584 H C-Reactive Protein 4.40 H Albumin 3.7 L Coronavirus (PCR) 01/12/20 01/13/20 01/13/20 Unknown 05:03 05:03 WBC MCH 25 L RDW 16.9 H Spink % (Auto) 8.1 H D-Dimer ABG HCO3 ABG Base Excess Sodium Chloride 97.7 L BUN Glucose 112 H Calcium 7.9 L Lactate Dehydrogenase C-Reactive Protein Albumin Coronavirus (PCR) Positive A 01/13/20 01/13/20 01/14/20 23:51 23:51 21:15 WBC MCH RDW Spink % (Auto) D-Dimer 1080.13 H ABG HCO3 29.1 H ABG Base Excess 4.0 H Sodium Chloride BUN Glucose Calcium Lactate Dehydrogenase 522 H C-Reactive Protein 13.80 H Albumin Coronavirus (PCR) 01/15/20 01/15/20 01/17/20 20:29 20:29 04:40 WBC MCH RDW Spink % (Auto) D-Dimer 1508.44 H ABG HCO3 ABG Base Excess Sodium Chloride BUN Glucose Calcium Lactate Dehydrogenase 389 H 383 H C-Reactive Protein 5.40 H 2.80 H Albumin Coronavirus (PCR) 01/17/20 01/17/20 01/17/20 04:40 04:40 20:18 WBC 13.5 H MCH 25 L RDW 17.1 H Spink % (Auto) D-Dimer 829.29 H ABG HCO3 ABG Base Excess Sodium Chloride BUN 23 H Glucose 151 H Calcium Lactate Dehydrogenase C-Reactive Protein Albumin Coronavirus (PCR) 01/19/20 01/19/20 01/19/20 04:56 04:56 04:56 WBC 12.0 H MCH 25 L RDW 16.7 H Spink % (Auto) D-Dimer 763.21 H ABG HCO3 ABG Base Excess Sodium Chloride BUN 22 H Glucose 151 H Calcium 8.1 L Lactate Dehydrogenase 331 H C-Reactive Protein Albumin Coronavirus (PCR)
[2020-01-21 13:23] VITALS: BP 107/69
--- NOTE | 2020-01-21 15:31 | Progress Note ---
Assessment and Plan Cultures: Blood cultures no growth so far Assessment: 39 years old female with history of super obesity, obstructive sleep apnea, admitted on 01/13/2020 due to 10-day history of runny nose, body aches, generalized malaise, dry cough, progressive shortness of breath: #Severe sepsis: hypotension, tachy better; secondary to severe COVID. #Severe cough with COVID pneumonia: Markers significantly elevated. Completed 5 days of Remdesivir. Completed Actemra on 01/17/2020. Continue steroids. #Acute hypoxemic respiratory failure: weaned to 4 liters NC. #Extreme obese: Adjusting medication to the weight Recommendations: Continue Solu-Medrol, start tapering Continue anticoagulation Daily biomarkers oxygenation continues to improve, so no need for plasma Discharge planning d/w Dr. Roselyn Siegel MD, FACP [facility] ([facility]) C: [phone] O: [phone] F: [phone] Subjective Date of service: 01/21/20 Principal diagnosis: Severe COVID Interval history: No fever. Oxygen weaned to 4 L/min by nasal cannula. Objective - Exam Narrative Exam: Physical Exam (reviewed in chart due to PPE conservation) Constitutional: limited due to PPE conservation strategy Head, Ears, Nose: limited due to PPE conservation strategy Eyes: limited due to PPE conservation strategy Neck: limited due to PPE conservation strategy Oral: limited due to PPE conservation strategy Cardiovascular: limited due to PPE conservation strategy Respiratory: limited due to PPE conservation strategy GI: limited due to PPE conservation strategy Musculoskeletal: limited due to PPE conservation strategy Skin: limited due to PPE conservation strategy Hem/Lymphatic: limited due to PPE conservation strategy Psych: limited due to PPE conservation strategy Neurological: limited due to PPE conservation strategy - Constitutional Vitals: Vital Signs Temp Pulse Resp BP Pulse Ox 97.9 F 70 20 107/69 94 01/21/20 12:00 01/21/20 12:00 01/21/20 12:00 01/21/20 12:00 01/21/20 13:35 Temperature -Last 24 Hours Temperature 97.9 F Temperature 97.7 F Temperature 97.3 F Temperature 98.6 F - Labs CBC & Chem 7: 01/19/20 04:56 01/19/20 04:56
--- NOTE | 2020-01-21 16:34 | Discharge Summary ---
Providers - Providers Date of Admission: 01/12/20 15:00 Date of discharge: 01/21/20 Attending physician: KENDELL PIERCE 01/14/20 09:52 Consult to Physician [CONS] Routine Comment: Consulting Provider: UNA WOODARD Physician Instructions: Reason For Exam: covid 19 PNA 01/14/20 16:24 Consult to Physician [CONS] Routine Comment: Consulting Provider: CYNDI GUSMAN Physician Instructions: Reason For Exam: respiratory failure Primary care physician: TOP POLISHER Hospitalization Condition: Stable Disposition: DC- TO HOME OR SELFCARE Time spent for discharge: 34 minutes Core Measure Documentation - Palliative Care Palliative Care/ Comfort Measures: Not Applicable - Core Measures Any of the following diagnoses?: none Exam - Physical Exam Narrative exam: GENERAL: well-developed and morbidly obese -[place] female lying on bed appeared to be in no discomfort. HEENT: Normocephalic. Atraumatic. No conjunctival congestion or icterus. Patient has moist mucous membranes. NECK: Supple. Trachea midline. CHEST/LUNGS: Diminished breath sound auscultated bilaterally, breathing nonlabored. HEART/CARDIOVASCULAR: Regular in rate and rhythm. S1 and S2 positive. ABDOMEN: Abdomen is soft, nontender. Patient has normal bowel sounds. SKIN: There is no rash. Warm and dry. NEURO: No focal motor deficit. Follows command. MUSCULOSKELETAL: No joint effusion or tenderness. EXTRIMITY: No edema, no cyanosis or clubbing. PSYCH: Cooperative. - Constitutional Vitals: Temp Pulse Resp BP Pulse Ox 97.9 F 70 20 107/69 94 01/21/20 12:00 01/21/20 12:00 01/21/20 12:00 01/21/20 12:01/21/20 13:35 Plan Activity: advance as tolerated Weight Bearing Status: Weight Bear as Tolerated Diet: low fat, low salt Follow up with: PRIMARY CARE, [Primary Care Provider] - 3-5 Days Prescriptions: Apixaban [Eliquis starter pack] 5 mg PO BID #30 tab.ds.pk Prednisone [predniSONE 10 mg (6-Day Pack, 21 Tabs)] 10 mg PO .TAPER #1 tab.ds.pk Pantoprazole [Protonix TAB] 40 mg PO QDAY #10 tablet
[2020-01-21 16:43] LABS: C-Reactive Protein 0.3 mg/dL (0.00-1.30)
== END 2020-01-21 19:00 | disposition home or self-care (01) | DRG 871 ==
LOC: ED 11:56 → 3A 15:00 → IMCU 01-14 20:44 → 3A 01-20 18:00
PROVIDERS: ADMIT Internal Medicine; ATTEND Internal Medicine
DX: A41.89 Other specified sepsis (principal); U07.1 COVID-19; J12.89 Other viral pneumonia; J96.01 Acute respiratory failure with hypoxia; E66.2 Morbid (severe) obesity with alveolar hypoventilation; Z68.44 Body mass index [BMI] 60.0-69.9, adult; R65.20 Severe sepsis without septic shock; I95.9 Hypotension, unspecified; R79.1 Abnormal coagulation profile
CPT/HCPCS: 36415; 71045; 80048; 80076; 81001; 82140; 82728; 82803; 82947; 83615; 84145; 84703; 85025; 85027; 85379; 86140; 86850; 86900; 86901; 87040; 93970; 94760; 96365; 96366; 96368; G0378; J0456; J0696; J1644; J1650; J2405; J2920; J2930; J7030; J7050; U0003-CS